=== PATIENT | female | born 1940 | race Caucasian/White ===

== ENCOUNTER 2023-02-25 10:48 | Outpatient (CLI) | payer MEDICARE, BC, SELFPAY | END 2023-02-25 10:49 | disposition home or self-care (01) | LOC: AMB 02-26 09:24 | PROVIDERS: PCP Family Medicine; Visit Provider Emergency Medicine Emergency Medical Services | DX: S19.9XXA Unspecified injury of neck, initial encounter (principal); S39.92XA Unspecified injury of lower back, initial encounter; W06.XXXA Fall from bed, initial encounter; Y92.003 Bedroom of unspecified non-institutional (private) residence as the place of occurrence of the external cause | CPT/HCPCS: A0425; A0429 ==

== ENCOUNTER 2023-02-25 11:32 | Observation (INO) | payer MEDICARE, BC, SELFPAY ==
[2023-02-25 11:42] VITALS: BP 123/78; PULSE 75; RESP 18; TEMP 36.1; O2SAT 95; BMI 46.9
[2023-02-25 12:39] VITALS: BP 131/78; O2SAT 96
--- NOTE | 2023-02-25 12:44 | ED.NURSE ---
Patient set up with meal tray.
[2023-02-25] MEDS: 0.9 % SODIUM CHLORIDE 1000 ml 1,000 ML IV (13:21)
--- NOTE | 2023-02-25 13:23 | ED_ITS ---
HPI - General Adult General Chief complaint: Fall/Minor Trauma Stated complaint: Fell Time Seen by Provider: 02/25/23 11:35 History of Present Illness HPI narrative: 82-year-old woman presenting to the emergency department via EMS after having fallen out of bed around 530 this morning about 5 or 6 hours ago. She is anxious about getting up due to knee replacements, kneeling on her plastic knees. She actually did have a fall on her knees about 6 days ago. Otherwise she just felt she was just too weak to get up; just could manage on her own. Is particularly worried about being too weak now on not being able to get to the bathroom for example. Is not complaining of significant pain. Initially noted to have right hip pain but she would not say that is where her major issue is. She does think she hit her head but feels lot better now with mild headache and can not say exactly where she come might have struck her head as she fell out of bed. Does have chronic neck issues but that does not appear to be flaring. Most discomfort she thinks was related to striking her toes as she rolled/fell out of bed and also ended up on the floor. Toes were excessively curled in some way. Feels like there is a glove on both feet. She does take regular acetaminophen and naproxen and is asking for this as we discuss care. She is also hungry noting her blood sugar to have been about 96. She is not experiencing nausea. She was in her usual state of health having really just been sleeping. No fevers. No history of seizures. Is noted to smell strongly of and be covered in urine on arrival here. Notes herself to have been diagnosed of COPD and asthma neither which he would say are flaring at this time. Related Data Home Medications Medication Instructions Recorded Confirmed acetaminophen 500 mg tablet 1,000 mg PO Q6H PRN 02/25/23 02/25/23 albuterol sulfate 90 mcg/actuation 2 inh inhalation Q4H PRN 02/25/23 02/25/23 aerosol inhaler aspirin 81 mg tablet,delayed 81 mg PO DAILY 02/25/23 02/25/23 release atorvastatin 10 mg tablet 10 mg PO DAILY 02/25/23 02/25/23 carvedilol 6.25 mg tablet 6.25 mg PO BID 02/25/23 02/25/23 cyclobenzaprine 5 mg tablet 5 mg PO TID PRN 02/25/23 02/25/23 fluticasone propionate 115 2 puff inhalation BID 02/25/23 02/25/23 mcg-salmeterol 21 mcg/actuation HFA inhaler (Advair HFA) fluticasone propionate 50 2 spray intranasal DAILY 02/25/23 02/25/23 mcg/actuation nasal spray,suspension furosemide 40 mg tablet 40 mg PO BID 02/25/23 02/25/23 insulin glargine 100 unit/mL (3 60 unit subcut BID 02/25/23 02/25/23 mL) subcutaneous pen (Lantus Solostar U-100 Insulin) insulin lispro 200 unit/mL (3 mL) 30 - 50 unit subcut TIDWM 02/25/23 02/25/23 subcutaneous pen (Humalog KwikPen U-200 Insulin) losartan 50 mg tablet 50 mg PO DAILY 02/25/23 02/25/23 multivitamin (Daily Multi-Vitamin 1 tab PO DAILY 02/25/23 02/25/23 tablet) naproxen sodium 220 mg tablet 220 mg PO BIDWM 02/25/23 02/25/23 (Aleve) omeprazole 20 mg capsule,delayed 20 mg PO DAILY 02/25/23 02/25/23 release tolterodine 4 mg capsule,extended 4 mg PO DAILY 02/25/23 02/25/23 release 24 hr Allergies Allergy/AdvReac Type Severity Reaction Status Date / Time lisinopril Allergy Verified 02/25/23 11:41 nitrofurantoin Allergy Verified 02/25/23 11:41 [From Macrodantin] Review of Systems Status of ROS: Reports: 6 or more systems reviewed and unremarkable except as noted in History and below [facility] Medical History (Updated 02/26/23 @ 11:41 by Cortney Vogt MD) Adenomatous colon polyp ?D12.6 - Benign neoplasm of colon, unspecified (ICD-10) Aneurysm of left iliac artery ?I72.3 - Aneurysm of iliac artery (ICD-10) Cervical spinal stenosis ?M48.02 - Spinal stenosis, cervical region (ICD-10) Chronic obstructive pulmonary disease ?J44.9 - Chronic obstructive pulmonary disease, unspecified (ICD-10) Diabetes mellitus type 2 in obese ?E11.69 - Type 2 diabetes mellitus with other specified complication (ICD-10) ?E66.9 - Obesity, unspecified (ICD-10) Diabetic peripheral neuropathy ?E11.42 - Type 2 diabetes mellitus with diabetic polyneuropathy (ICD-10) Essential hypertension ?I10 - Essential (primary) hypertension (ICD-10) External hemorrhoids ?K64.4 - Residual hemorrhoidal skin tags (ICD-10) Gastroesophageal reflux disease ?K21.9 - Gastro-esophageal reflux disease without esophagitis (ICD-10) Hyperlipidemia ?E78.5 - Hyperlipidemia, unspecified (ICD-10) Insulin resistance ?E88.81 - Metabolic syndrome (ICD-10) Long-term insulin use ?Z79.4 - rat exterminator (current) use of insulin (ICD-10) Lumbar spinal stenosis ?M48.061 - Spinal stenosis, lumbar region without neurogenic claudication (ICD-10) Lymphedema of both lower extremities ?I89.0 - Lymphedema, not elsewhere classified (ICD-10) Major depression ?F32.9 - Major depressive disorder, single episode, unspecified (ICD-10) Mild cognitive impairment ?G31.84 - Mild cognitive impairment of uncertain or unknown etiology (ICD-10) Mild persistent asthma without complication ?J45.30 - Mild persistent asthma, uncomplicated (ICD-10) Morbid obesity ?E66.01 - Morbid (severe) obesity due to excess calories (ICD-10) Obstructive sleep apnea ?G47.33 - Obstructive sleep apnea (adult) (pediatric) (ICD-10) STEPHANIE on CPAP ?G47.33 - Obstructive sleep apnea (adult) (pediatric) (ICD-10) ?Z99.89 - Dependence on other enabling machines and devices (ICD-10) Urinary urgency ?R39.15 - Urgency of urination (ICD-10) Vitamin B12 deficiency ?E53.8 - Deficiency of other specified B group vitamins (ICD-10) Surgical History History of colonoscopy with polypectomy ?Z98.890 - Other specified postprocedural states (ICD-10) ?Z86.010 - Personal history of colonic polyps (ICD-10) History of laminectomy ?Z98.890 - Other specified postprocedural states (ICD-10) History of strabismus surgery ?Z98.890 - Other specified postprocedural states (ICD-10) History of tubal ligation ?Z98.51 - Tubal ligation status (ICD-10) Status post appendectomy ?Z90.49 - Acquired absence of other specified parts of digestive tract (ICD- 10) Status post bilateral knee replacements ?Z96.653 - Presence of artificial knee joint, bilateral (ICD-10) Status post cataract extraction ?Z98.49 - Cataract extraction status, unspecified eye (ICD-10) Status post dilatation and curettage ?Z98.890 - Other specified postprocedural states (ICD-10) Status post hysterectomy ?Z90.710 - Acquired absence of both cervix and uterus (ICD-10) Status post mastectomy ?Z90.10 - Acquired absence of unspecified breast and nipple (ICD-10) Family History Mother Alzheimers disease Social History Narrative: Lives alone in private home. As of 02/25/2023 patient indicates she has been trying to convince her children that she needs to live in a setting where she can receive help due to her evolving physical and cognitive decline. Would like to move to the [facility], closer to 2 sons and her sister. Designates her son, Elier, as her healthcare power of deputy commonwealth's attorney should that be required. Requests DNR DNI resuscitation in the event of cardiopulmonary demise. Dr. Elmira Rodriguez is her primary care physician. Highest level of school completed/degree received: some college, no degree Smoking Status: Never smoker How often do you have a drink containing alcohol: never AUDIT-C Alcohol total score: 0 Non-prescribed substance use: denies use Caffeine: Yes (Daily) service: No Exam Narrative: Exam Narrative: Pleasant. NAD. Hard of hearing. Smells strongly of urine. Dysconjugate gaze. Leave the left eye deviates superiorly and laterally. There is some conjunctival injection possible mild subconjunctival hemorrhage on the left. Extraocular movements appear to be full and without pain. Is breathing easily. Is rather weak to go to sitting. Lungs with some clearing crepitus. Initially trace wheeze I heard in the anterior chest otherwise seems to be resolved. Breathing easily. Oropharynx without indication of trauma. Is sticky. She does not have any discrete areas of pain or swelling to palpation of the head. Neck is without midline tenderness. Back without midline tenderness. Again expansive breathing without pain. No pain to palpation about the clavicles. Appears to be moving all extremities without particular pain or difficulty. Able to raise both legs from the bed without assistance and flexing extending the thighs, rotating without exacerbation of pain. She is a little sore to palpation in the posterior right hip but only minimally so. There is midline scars on both knees consistent with surgery/knee replacement. Stippling about the right knee consistent with a recently having been on her knees. Skin is otherwise warm and dry. She has some mild intertrigo under the abdominal fold/pannus. There is mild erythema and calor symmetrically at the sock line; not tender to palpation here. Toes are without inflammatory changes and no particular pain to palpation. I suspect they were in an odd position for some time. Abdomen is obese soft and nontender. There is soft uninflamed umbilical hernia. Const: Vital Signs, click to edit/add: Vital Signs - 24 hr 02/25/23 12:39 Blood Pressure [Ri ght Upper Arm] 131/78 Pulse Oximetry 96 Documenting provider has reviewed patient's vital signs: yes Course Vital Signs Vital signs: Initial Vital Signs Temperature 97.0 F L 02/25/23 11:42 Temperature Source Temporal Artery Scan 02/25/23 11:42 Pulse Rate 75 02/25/23 11:42 Respiratory Rate 18 02/25/23 11:42 Blood Pressure 123/78 02/25/23 11:42 Blood Pressure Mean 93 02/25/23 11:42 Blood Pressure Position Sitting 02/25/23 11:42 Pulse Oximetry 95 02/25/23 11:42 Oxygen Delivery Method Room Air 02/25/23 11:42 Vital Signs Temperature 97.0 F L 02/25/23 11:42 Pulse Rate 75 02/25/23 11:42 Respiratory Rate 18 02/25/23 11:42 Blood Pressure 123/78 02/25/23 11:42 Pulse Oximetry 95 02/25/23 11:42 Oxygen Delivery Method Room Air 02/25/23 11:42 Temperature 98.1 F 02/26/23 11:00 Pulse Rate 59 L 02/26/23 11:00 Respiratory Rate 20 02/26/23 11:00 Blood Pressure 113/82 02/26/23 11:00 Pulse Oximetry 94 02/26/23 11:00 Oxygen Delivery Method Room Air 02/26/23 11:00 Oxygen Flow Rate 2 02/26/23 03:00 Medical Decision Making MDM Narrative Medical decision making narrative: Two nurses assisted to commode. They note marked weakness. I think it would be reasonable to look for potential infection source. She does not appear to be in respiratory difficulty. Is generally deconditioned and overweight. Concern also of somewhat prolonged down time. Will hydrate. Check CK. It does not appear that imaging is needed at this time. This not appear to be a significant head injury nor she on blood thinners. No discrete area of injury on her feet either. And is mobile with her hips inconsistent with fracture. Due to apparent weakness and living alone I am anticipating though admission unless she really turns around. On reassessment still appears too weak to go home. I have contacted our hospitalist for admission. Lab Data Lab results reviewed: Yes I reviewed the patient's lab results Labs: Lab Results 02/25/23 02/25/23 Range/Units 12:49 13:40 WBC 7.53 (4.50-11.00) K/uL RBC 4.32 (4.00-5.20) m/uL Hgb 12.2 (12.0-16.0) gm/dL Hct 38.8 (33.0-51.0) % MCV 90 (80-100) fL MCH 28 (26-34) pg MCHC 31 L (32-36) gm/dL RDW Coeff of Blanche 14.6 (11.5-15.5) % Plt Count 126 L (140-440) K/uL Neut % (Auto) 75.7 H (42.0-72.0) % Lymph % (Auto) 14.7 L (20-44) % [place] % (Auto) 8.2 (0.0-11.0) % Eos % (Auto) 1.2 (0.0-7.0) % Baso % (Auto) 0.1 (0.0-3.0) % Neut # (Auto) 5.70 (1.7-7.0) K/uL Lymph # (Auto) 1.10 (0.90-2.90) K/uL [place] # (Auto) 0.60 (0.00-0.90) K/UL Eos # (Auto) 0.09 (0.00-0.50) K/uL Baso # (Auto) 0.01 (0.00-0.30) K/uL Sodium 141 (135-149) mmol/L Potassium 3.6 (3.6-5.1) mmol/L Chloride 105 (96-114) mmol/L Carbon Dioxide 24 (20-32) mmol/L BUN 14 (7-30) mg/dL Creatinine 0.4 L (0.5-1.5) mg/dL Estimated Creat Clear 40.38 Estimated GFR 100 ml/min Glucose 108 (60-115) mg/dL Lactate 2.0 H (0.5-1.9) mmol/L Calcium 8.5 (8.4-10.6) mg/dL Total Creatine Kinase 268 H (41-117) U/L C-Reactive Protein 2.3 H (0.5-1.0) mg/dL Ethyl Alcohol < 0.01 L (0.01-0.03) % SARS-CoV-2 (PCR) Negative SARS-CoV-2 (Negative) Discharge Plan Discharge Clinical Impression: Physical deconditioning, Weakness Patient Disposition: Admitted As Inpatient Condition: Stable
[2023-02-25 13:47] LABS: Chloride* 105 mmol/L (96-114); Glucose* 108 mg/dL (60-115); Potassium* 3.6 mmol/L (3.6-5.1); Sodium* 141 mmol/L (135-149)
[2023-02-25 13:49] LABS: Basophils Absolute Auto 0.01 K/uL (0.00-0.30); Basophils Percent Auto 0.1 % (0.0-3.0); Eosinophils Absolute Auto 0.09 K/uL (0.00-0.50); Eosinophils Percent Auto 1.2 % (0.0-7.0); Hematocrit 38.8 % (33.0-51.0); Hemoglobin* 12.2 gm/dL (12.0-16.0); Immature Granulocytes Abs Auto 0.01 K/uL (0.00-0.30); Immature Granulocytes Pct Auto 0.1 %; Lymphocytes Percent Auto 14.7 % (20-44); Mean Corpuscular HGB Conc 31 gm/dL (32-36); Mean Corpuscular Hemoglobin 28 pg (26-34); Mean Corpuscular Volume 90 fL (80-100); Monocytes Percent Auto 8.2 % (0.0-11.0); Neutrophils Percent Auto 75.7 % (42.0-72.0); Platelet Count* 126 K/uL (140-440); RDW Coefficient of Variation % 14.6 % (11.5-15.5); Red Blood Count 4.32 m/uL (4.00-5.20); White Blood Count* 7.53 K/uL (4.50-11.00)
[2023-02-25 13:51] LABS: Slide Review Reflex No
[2023-02-25 14:00] LABS: SARS PCR* Negative SARS-CoV-2 (Negative)
[2023-02-25] MEDS: ACETAMINOPHEN 500 MG TABLET 1000 MG PO (14:16)
[2023-02-25 14:44] LABS: Creatinine* 0.4 mg/dL (0.5-1.5); Est. Creatinine Clearance* 40.38; Estimated Glomerular Filt Rate 100 ml/min
[2023-02-25 14:45] LABS: Blood Urea Nitrogen* 14 mg/dL (7-30); Carbon Dioxide* 24 mmol/L (20-32)
[2023-02-25 14:46] LABS: Calcium* 8.5 mg/dL (8.4-10.6)
[2023-02-25 14:48] LABS: C Reactive Protein* 2.3 mg/dL (0.5-1.0); Ethanol* < 0.01 % (0.01-0.03)
[2023-02-25 15:00] LABS: Creatine Kinase* 268 U/L (41-117)
[2023-02-25 16:41] LABS: HCO3 VBG 26 mmol/L (21-28); Lactate* 2.3 mmol/L (0.5-1.9); PCO2 VBG 39 mmHG (40-50); PO2 VBG 58.1 mmHG (25-47); pH VBG 7.439 (7.32-7.43)
[2023-02-25] MEDS: FUROSEMIDE 40 MG TABLET PO (16:47)
[2023-02-25] MEDS: 0.9 % SODIUM CHLORIDE 1000 ml 1,000 ML 125 ML IV (16:47)
--- NOTE | 2023-02-25 16:58 | P.IMHP_ITS ---
Hospitalist- H&P: HPI History of Present Illness Time Seen by Provider: 15:30 Date Seen: 02/25/23 Chief complaint: Fell Narrative: Jesenia Rudolph is a 82 year old woman who lives alone in her own private residence. Around 0530 today patient rolled out of bed and was unable to get up afterward. She indicates she must have been disoriented as to where she was and she simply rolled out of bed. She had minor complaint of right foot discomfort right ankle discomfort right hip discomfort right elbow discomfort right shoulder discomfort and even had discomfort post fall. Believes she did strike her head. She know she did not lose consciousness. She states she was stuck between a dresser and her bed. It took her 2-3 hours to scoot in order to reach the telephone and called EMS for help. With help from EMS she was able to become dislodged from this area. She notes she is weak which is not unusual for her but she is now too frightened to continue to live in her home. She indicates she has had difficulty with ambulating and transferring for some time. Early January she was unable to get off of her toilet because of this difficulty. She has been discussing with her children her desire to move out of her home and into a setting where she has helped, recognizing that it is becoming increasingly difficult for her to safely care for herself due to her evolving physical weakness and cognitive decline. Review of Systems Status of ROS: Reports: 10 or more systems reviewed and unremarkable except as noted in History and below Narrative: Denies loss of consciousness. Most of her right-sided discomforts have since resolved. Denies angina, anginal equivalent, syncope, near syncope, orthostasis, vertical, dizziness, lightheadedness, nausea, vomiting, palpitations, chest fluttering, diaphoresis, fevers, rigors, cough, dyspnea at rest, paroxysmal nocturnal dyspnea, orthopnea. Has baseline dyspnea with exertion, not new. Utilizing her CPAP at night. Tells me that she has oxygen bleeding into her CPAP machine at 2 liters/minute. Baseline difficulties with passing her stool. At time she notes postvoid bleeding from her known external hemorrhoids. Had a colonoscopy in January of 2022 which was essentially negative except for external hemorrhoid and the polyp that was removed that did not have high-grade dysplasia. Denies constipation or diarrhea. Denies dysuria, hematuria, frequency. Does have urinary urgency. Does have stress urinary incontinence. Utilizes incontinent products. Acknowledges is becoming increasingly difficult for her to walk. She describes it as a sense of weakness. Known to have severe lumbar spinal stenosis. No other focal motor neurologic deficits. No weight gain, weight loss, night sweats, or cold or heat intolerance. [facility] Medical History (Updated 02/25/23 @ 17:16 by Matt Houesr MD) Adenomatous colon polyp ?D12.6 - Benign neoplasm of colon, unspecified (ICD-10) Aneurysm of left iliac artery ?I72.3 - Aneurysm of iliac artery (ICD-10) Cervical spinal stenosis ?M48.02 - Spinal stenosis, cervical region (ICD-10) Chronic obstructive pulmonary disease ?J44.9 - Chronic obstructive pulmonary disease, unspecified (ICD-10) Diabetes mellitus type 2 in obese ?E11.69 - Type 2 diabetes mellitus with other specified complication (ICD-10) ?E66.9 - Obesity, unspecified (ICD-10) Diabetic peripheral neuropathy ?E11.42 - Type 2 diabetes mellitus with diabetic polyneuropathy (ICD-10) Essential hypertension ?I10 - Essential (primary) hypertension (ICD-10) External hemorrhoids ?K64.4 - Residual hemorrhoidal skin tags (ICD-10) Gastroesophageal reflux disease ?K21.9 - Gastro-esophageal reflux disease without esophagitis (ICD-10) Hyperlipidemia ?E78.5 - Hyperlipidemia, unspecified (ICD-10) Insulin resistance ?E88.81 - Metabolic syndrome (ICD-10) Long-term insulin use ?Z79.4 - detention (current) use of insulin (ICD-10) Lumbar spinal stenosis ?M48.061 - Spinal stenosis, lumbar region without neurogenic claudication (ICD-10) Lymphedema of both lower extremities ?I89.0 - Lymphedema, not elsewhere classified (ICD-10) Major depression ?F32.9 - Major depressive disorder, single episode, unspecified (ICD-10) Mild cognitive impairment ?G31.84 - Mild cognitive impairment of uncertain or unknown etiology (ICD-10) Mild persistent asthma without complication ?J45.30 - Mild persistent asthma, uncomplicated (ICD-10) Morbid obesity ?E66.01 - Morbid (severe) obesity due to excess calories (ICD-10) Obstructive sleep apnea ?G47.33 - Obstructive sleep apnea (adult) (pediatric) (ICD-10) STEPHANIE on CPAP ?G47.33 - Obstructive sleep apnea (adult) (pediatric) (ICD-10) ?Z99.89 - Dependence on other enabling machines and devices (ICD-10) Urinary urgency ?R39.15 - Urgency of urination (ICD-10) Vitamin B12 deficiency ?E53.8 - Deficiency of other specified B group vitamins (ICD-10) Surgical History History of colonoscopy with polypectomy ?Z98.890 - Other specified postprocedural states (ICD-10) ?Z86.010 - Personal history of colonic polyps (ICD-10) History of laminectomy ?Z98.890 - Other specified postprocedural states (ICD-10) History of strabismus surgery ?Z98.890 - Other specified postprocedural states (ICD-10) History of tubal ligation ?Z98.51 - Tubal ligation status (ICD-10) Status post appendectomy ?Z90.49 - Acquired absence of other specified parts of digestive tract (ICD- 10) Status post bilateral knee replacements ?Z96.653 - Presence of artificial knee joint, bilateral (ICD-10) Status post cataract extraction ?Z98.49 - Cataract extraction status, unspecified eye (ICD-10) Status post dilatation and curettage ?Z98.890 - Other specified postprocedural states (ICD-10) Status post hysterectomy ?Z90.710 - Acquired absence of both cervix and uterus (ICD-10) Status post mastectomy ?Z90.10 - Acquired absence of unspecified breast and nipple (ICD-10) Family History Mother Alzheimers disease Social History Narrative: Lives alone in private home. As of 02/25/2023 patient indicates she has been trying to convince her children that she needs to live in a setting where she can receive help due to her evolving physical and cognitive decline. Would like to move to the [facility], closer to 2 sons and her sister. Designates her son, Elier, as her healthcare power of family law attorney should that be required. Requests DNR DNI resuscitation in the event of cardiopulmonary demise. Dr. Elmira Rodriguez is her primary care physician. Meds Home Medications and Allergies Home Medications Medication Instructions Recorded Confirmed Type acetaminophen 500 mg tablet 1,000 mg PO Q6H PRN 02/25/23 02/25/23 History albuterol sulfate 90 mcg/actuation 2 inh inhalation Q4H PRN 02/25/23 02/25/23 History aerosol inhaler aspirin 81 mg tablet,delayed 81 mg PO DAILY 02/25/23 02/25/23 History release atorvastatin 10 mg tablet 10 mg PO DAILY 02/25/23 02/25/23 History carvedilol 6.25 mg tablet 6.25 mg PO BID 02/25/23 02/25/23 History cyclobenzaprine 5 mg tablet 5 mg PO TID PRN 02/25/23 02/25/23 History fluticasone propionate 115 2 puff inhalation BID 02/25/23 02/25/23 History mcg-salmeterol 21 mcg/actuation HFA inhaler (Advair HFA) fluticasone propionate 50 2 spray intranasal DAILY 02/25/23 02/25/23 History mcg/actuation nasal spray,suspension furosemide 40 mg tablet 40 mg PO BID 02/25/23 02/25/23 History insulin glargine 100 unit/mL (3 60 unit subcut BID 02/25/23 02/25/23 History mL) subcutaneous pen (Lantus Solostar U-100 Insulin) insulin lispro 200 unit/mL (3 mL) 30 - 50 unit subcut TIDWM 02/25/23 02/25/23 History subcutaneous pen (Humalog KwikPen U-200 Insulin) losartan 50 mg tablet 50 mg PO DAILY 02/25/23 02/25/23 History multivitamin (Daily Multi-Vitamin 1 tab PO DAILY 02/25/23 02/25/23 History tablet) naproxen sodium 220 mg tablet 220 mg PO BIDWM 02/25/23 02/25/23 History (Aleve) omeprazole 20 mg capsule,delayed 20 mg PO DAILY 02/25/23 02/25/23 History release tolterodine 4 mg capsule,extended 4 mg PO DAILY 02/25/23 02/25/23 History release 24 hr Allergies Allergy/AdvReac Type Severity Reaction Status Date / Time lisinopril Allergy Verified 02/25/23 11:41 nitrofurantoin Allergy Verified 02/25/23 11:41 [From Macrodantin] Exam Narrative: Exam Narrative: Is in no acute distress. Appears comfortable. Small strong of urine. Alert, oriented to self, place, in part to time, and situation. Friendly, articulate, cooperative. Does have word-finding difficulties. Often gets lost in the middle of conversation not remembering what she was talking about. Vision and hearing are for the most part normal. Left sclera is injected, right is normal. Does have strabismus. Dentition in fair repair. Dry buccal mucosa. Neck is supple. Midline trachea. Normal thyroid. No JVD or hepatojugular reflux. No adenopathy in the pre or postauricular chains, anterior or posterior cervical chains, submandibular or submental fossa, supra or infraclavicular fossa, or axilla bilaterally. Lungs are clear to auscultation, without wheezing, rhonchi, or rales. Chest wall excursions are full. No CVA tenderness. Heart tones with regular rhythm, normal S1-S2, without murmur, gallop, or rub. PMI is not laterally displaced. Abdomen is morbidly obese. Active bowel sounds, soft, nontender. Mild edema pretibially bilaterally and pre-pedally. Transfers from supine to sitting and sitting to standing with standby assist. No tremor, asterixis, or ataxia. Const: Vital Signs, click to edit/add: Vital Signs - 24 hr 02/25/23 11:42 02/25/23 12:39 Temperature 97.0 F L Pulse Rate [Right Pulse Oximeter] 75 Respiratory Rate 18 Blood Pressure [Ri ght Upper Arm] 123/78 131/78 Pulse Oximetry 95 96 Oxygen Delivery Me thod Room Air Documenting provider has reviewed patient's vital signs: yes Hospitalist - H&P: Result Labs Labs: Short CBC 02/25/23 Range/Units 13:40 WBC 7.53 (4.50-11.00) K/uL Hgb 12.2 (12.0-16.0) gm/dL Hct 38.8 (33.0-51.0) % Plt Count 126 L (140-440) K/uL BMP 02/25/23 13:40 Sodium 141 Potassium 3.6 Chloride 105 Carbon Dioxide 24 BUN 14 Creatinine 0.4 L Glucose 108 Calcium 8.5 Cardiac Enzymes 02/25/23 Range/Units 13:40 Total Creatine Kinase 268 H (41-117) U/L Assessment and Plan Assessment and plan (1) Fall: Status: Acute (2) Weakness: Status: Acute (3) Physical deconditioning: Status: Acute (4) Lumbar spinal stenosis: Problem comment: MRI 10/08/2019: 1. Moderately advanced spinal canal stenosis L2-L3, L3-L4, L4-L5; 2. L2 wedge deformity, L3 endplate deformity on the left, combination of type 1 and type 2 Modic changes within the L2 L3 subchondral bone marrow, chronic appearing superior inferior endplate deformities at L4 and at L5. Status: Acute (5) Cervical spinal stenosis: Status: Acute (6) Morbid obesity: Problem comment: BMI 45 Status: Acute (7) Mild cognitive impairment: Problem comment: MOCA 30/30 on 05/24/2022, increasingly difficult for her to care for herself and live alone safely Status: Acute (8) Diabetes mellitus type 2 in obese: Problem comment: Hemoglobin A1c 7.9 09/11/2022, 8.0 09/12/2021, 7.6 09/01/2020 Status: Acute (9) STEPHANIE on CPAP: Status: Acute Plan 1. Reviewed impression with Dr. Jackson, emergency department physician. Agree with recommendation for admission to observation given patient weakness and inability to safely care for self. 2. Reviewed impression with patient. 3. Patient agreeable to admission for observation. 4. Physical and occupational therapy consultation, including repeat MOCA administration. Coding Specialist consultation for initiation of placement considerations. 5. Continue supportive medications. 6. Continue with CPAP at at bedtime. 7. Answered patient's questions to her satisfaction. 8. Patient agreeable with above stated plans and recommendations. 9. Hydrate and monitor creatine kinase, await urine analysis, obtain other labs. 10. Consider additional imaging if warranted.
[2023-02-25 17:01] VITALS: BP 131/88; PULSE 77; RESP 24; TEMP 36.8; O2SAT 96; BMI 46.6
--- NOTE | 2023-02-25 17:59 | PC.NURSE ---
PT PLEASANT AND COOPERATIVE, ALERT AND ORIENTED X3, ALTHOUGH APPEARS CONFUSED AT TIMES OR MISTAKES FACTS, MY IN 2019, 5 YEARS AGO, ALTHOUGH PREVIOUSLY STATED IT WAS 2022, UP WITH A1 WALKER AND BELT TOLERATING FAIRLY SOB WITH ACTIVITY, TAKES A COUPLE MINUTES TO RECOVER ONCE AT REST, NEED UA PT VOIDED BUT MISSED THE COLLECTION CONTAINER IN THE TOILET AND IN INCONTINENT PRIOR TO GETTING TO TOILET, GENERALIZED PAIN LOWER BACK, RIGHT HIP, RIGHT KNEE, TOES BEING MANAGED WITH SCHEDULED MEDICATIONS, PATIENT REQUESTED SCHEDULED NAPROXEN BE GIVEN CLOSER TO BED TIME, TOLERATING REGULAR DIET PATIENT STATED AT HOME SHE WOULD GIVEN HERSELF 100 UNITS OF INSULIN BEFORE MEAL PATIENT EDUCATED ON SHORT AND LONG ACTING INSULIN PATIENT VERBALIZE UNDERSTANDING, BRUISE NOTED TO RIGHT KNEE PER PATIENT THIS IS NOT FROM TODAY FALL BUT FROM A FALL A COUPLE DAYS AGO, LEFT EYE DEVIATED PER PATIENT THIS IS NORMAL HAD EYE SURGERY AN INFANT, LEFT BREAST REMOVED PREVIOUS MASTECTOMY.
[2023-02-25 19:00] VITALS: BP 105/69; PULSE 70; RESP 20; TEMP 36.6; O2SAT 94
[2023-02-25 19:18] LABS: Appearance Urine Clear (Clear); Bilirubin Urine Negative (Negative); Blood Urine Trace-intact (Negative); Color Urine Yellow (Yellow); Glucose Urine 2+ (Negative); Ketones Urine Trace (Negative); Leukocyte Esterase Urine Negative (Negative); Nitrite Urine Negative (Negative); Protein Urine Negative (Negative)
[2023-02-25 19:43] LABS: Squamous Epithelial Cell Urine Few (None-Few); WBC Urine 0-2 (0-5)
[2023-02-25] MEDS: NAPROXEN 250 MG TABLET PO (20:50)
[2023-02-25] MEDS: ATORVASTATIN 10 MG TABLET PO (20:50)
[2023-02-25] MEDS: carvediloL 6.25 MG TABLET PO (20:50)
[2023-02-25 23:00] VITALS: BP 120/63; PULSE 64; RESP 18; RESP 20; TEMP 36.1; O2SAT 95
[2023-02-26] VITALS (8 sets, daily range): BP systolic 109–141; BP diastolic 62–98; PULSE 57–69; RESP 18–20; TEMP 36.1–36.7; O2SAT 93–96
[2023-02-26 06:15] LABS: Lactate* 2.2 mmol/L (0.5-1.9)
--- NOTE | 2023-02-26 06:25 | PC.NURSE ---
Shift note: Pt is doing well, able to ambulate with A1, walker and GB. Pain level has been rated between 4 and 7 but denied pain medication. Pt was occasionally confused and forgetfulness at times.
[2023-02-26 06:34] LABS: Creatine Kinase* 286 U/L (41-117)
[2023-02-26] MEDS: OMEPRAZOLE 20 MG CAPSULE DR PO (06:57)
[2023-02-26] MEDS: 0.9 % SODIUM CHLORIDE 1000 ml 1,000 ML 250 ML IV (07:55)
[2023-02-26 07:59] LABS: Chloride* 106 mmol/L (96-114); Potassium* 4.1 mmol/L (3.6-5.1); Sodium* 137 mmol/L (135-149)
[2023-02-26 08:02] LABS: Creatinine* 0.4 mg/dL (0.5-1.5); Est. Creatinine Clearance* 40.38; Estimated Glomerular Filt Rate 100 ml/min
[2023-02-26 08:03] LABS: Blood Urea Nitrogen* 15 mg/dL (7-30); Calcium* 8.4 mg/dL (8.4-10.6); Carbon Dioxide* 23 mmol/L (20-32); Glucose* 192 mg/dL (60-115)
[2023-02-26 08:06] LABS: C Reactive Protein* 2.2 mg/dL (0.5-1.0)
[2023-02-26 08:14] LABS: Hemoglobin A1C* 9.91 % (0-5.6)
[2023-02-26] MEDS: NAPROXEN 250 MG TABLET PO ×2 (08:37→20:27)
[2023-02-26] MEDS: ASPIRIN 81 MG TABLET EC PO (08:41)
[2023-02-26] MEDS: LOSARTAN POTASSIUM 50 MG TABLET PO (08:41)
[2023-02-26] MEDS: FLUTICASONE PROPIONATE NASAL 2 SPRAY NOSTRIL-B (08:41)
[2023-02-26] MEDS: FUROSEMIDE 40 MG TABLET PO ×2 (08:41→14:01)
[2023-02-26] MEDS: carvediloL 6.25 MG TABLET PO ×2 (08:41→20:26)
[2023-02-26] MEDS: TOLTERODINE TARTRATE 2 MG CAP.ER.24H 4 MG PO (08:41)
[2023-02-26] MEDS: ALBUTEROL INHALER 2 PUFF IH (08:42)
[2023-02-26] MEDS: SODIUM CHLORIDE 0.9 % (FLUSH) 10 ML SYRINGE 5 ML IVF (08:43)
[2023-02-26] MEDS: ACETAMINOPHEN 500 MG TABLET 1000 MG PO (09:43)
--- NOTE | 2023-02-26 09:51 | PM.IMPN1 ---
Progress Note: A&P Assessment and plan (1) Fall: Problem details: uninjured 02/25. Physical therapy reports some impulsive movements and dismissive of instructions. Occupational therapy documented a executive function is regards chronic disease management, activities of independent living are questionably reliable. -spoke with son Nash for 25 minutes on the phone. I am recommending assisted living facility. I also recommended a family where we explained our findings and concerns to Jesenia. At a minimum, she will meet criteria for discharge in the morning, assuming lactate and CK are normal. Home safety eval, OT outpatient at a minimum. Status: Acute (2) Lactate blood increase: Problem details: Fluid bolus with maintenance rate, recheck 3:00 p.m. Status: Acute (3) Elevated CK: Problem details: Fluid bolus with maintenance rate, recheck 3:00 p.m. Status: Acute (4) Diabetes mellitus type 2 in obese: Problem details: A1C 9.9 SSI, accuchecks, home insulin (lantus and regular, no PO meds) Status: Acute (5) Mild cognitive impairment: Problem details: [place] . More concerning is her executive function is regards I ADLs Status: Acute (6) Morbid obesity: Problem details: BMI 45 Status: Acute (7) Physical deconditioning: Status: Acute (8) STEPHANIE on CPAP: Status: Acute (9) Lumbar spinal stenosis: Problem details: MRI 10/08/2019: 1. Moderately advanced spinal canal stenosis L2-L3, L3-L4, L4-L5; 2. L2 wedge deformity, L3 endplate deformity on the left, combination of type 1 and type 2 Modic changes within the L2 L3 subchondral bone marrow, chronic appearing superior inferior endplate deformities at L4 and at L5. Status: Acute (10) Cervical spinal stenosis: Status: Acute Subjective Date Seen: 02/26/23 Interval history: Daily Progress Note - Hospital Medicine Day #: 2 CC: Weak, fell at home. Elevated CK and lactate levels. OVERNIGHT UPDATES FROM STAFF & MED, LAB, IMAGING UPDATES Uneventful night. Patient is stable. She is alert and hungry for breakfast. She is able to describe her family and who has been involved in her care. Afebrile. 125/80. Pulse 58. Respiratory rate 20. 95% on room air. 127.5 kilos. Labs are reviewed from admission, 02/25/2023 Morning labs reveal normal electrolytes, normal creatinine. Hemoglobin A1c 9.9 Persistently elevated lactate at 2.2 Total CK has climbed from 268-286 CRP is about the same 2.3-2.2 Objective: comfortable; chats easily Vitals: see above Lungs: Clear. Cardiac: S1S2. Disposition/Potential discharge - Likely to return to previous living situation. Total time is 35 minutes with greater than 50% spent in counseling and coordination of care. Exam Const: Vital Signs, click to edit/add: Vital Signs - 24 hr 02/25/23 11:42 02/25/23 12:39 02/25/23 17:01 Temperature 97.0 F L 98.2 F Pulse Rate [Pulse Oximeter] 77 Pulse Rate [Right Pulse Oximeter] 75 Pulse Rate [orthos tatic lying Left] Pulse Rate [orthos tatic sitting Left ] Pulse Rate [orthos tatic standing Lef t] Respiratory Rate 18 24 Blood Pressure [Le ft Arm] 131/88 Blood Pressure [Ri ght Upper Arm] 123/78 131/78 Blood Pressure [or thostatic lying] Blood Pressure [or thostatic sitting Left Arm] Blood Pressure [or thostatic standing Left Arm] Pulse Oximetry 95 96 96 Oxygen Delivery Me thod Room Air Room Air Oxygen Flow Rate 02/25/23 17:01 02/25/23 19:00 02/25/23 23:00 Temperature 98 F Pulse Rate [Pulse Oximeter] 70 Pulse Rate [Right Pulse Oximeter] Pulse Rate [orthos tatic lying Left] Pulse Rate [orthos tatic sitting Left ] Pulse Rate [orthos tatic standing Lef t] Respiratory Rate 24 20 18 Blood Pressure [Le ft Arm] 105/69 Blood Pressure [Ri ght Upper Arm] Blood Pressure [or thostatic lying] Blood Pressure [or thostatic sitting Left Arm] Blood Pressure [or thostatic standing Left Arm] Pulse Oximetry 96 94 Oxygen Delivery Me thod Room Air Room Air Oxygen Flow Rate 02/25/23 23:00 02/25/23 23:00 02/26/23 03:00 Temperature 96.9 F L 96.9 F L Pulse Rate [Pulse Oximeter] 64 63 Pulse Rate [Right Pulse Oximeter] Pulse Rate [orthos tatic lying Left] Pulse Rate [orthos tatic sitting Left ] Pulse Rate [orthos tatic standing Lef t] Respiratory Rate 20 18 18 Blood Pressure [Le ft Arm] 120/63 121/64 Blood Pressure [Ri ght Upper Arm] Blood Pressure [or thostatic lying] Blood Pressure [or thostatic sitting Left Arm] Blood Pressure [or thostatic standing Left Arm] Pulse Oximetry 95 95 95 Oxygen Delivery Me thod Nasal Cannula Nasal Cannula Nasal Cannula Oxygen Flow Rate 2 2 2 02/26/23 06:00 02/26/23 07:20 02/26/23 07:00 Temperature 97.1 F L Pulse Rate [Pulse Oximeter] 58 L Pulse Rate [Right Pulse Oximeter] Pulse Rate [orthos tatic lying Left] 62 Pulse Rate [orthos tatic sitting Left ] 57 L Pulse Rate [orthos tatic standing Lef t] 59 L Respiratory Rate 20 20 Blood Pressure [Le ft Arm] 125/80 Blood Pressure [Ri ght Upper Arm] Blood Pressure [or thostatic lying] 120/68 Blood Pressure [or thostatic sitting Left Arm] 134/98 H Blood Pressure [or thostatic standing Left Arm] 141/95 H Pulse Oximetry 95 Oxygen Delivery Pr thod Room Air Oxygen Flow Rate 02/26/23 07:00 Temperature Pulse Rate [Pulse Oximeter] Pulse Rate [Right Pulse Oximeter] Pulse Rate [orthos tatic lying Left] Pulse Rate [orthos tatic sitting Left ] Pulse Rate [orthos tatic standing Lef t] Respiratory Rate 20 Blood Pressure [Le ft Arm] Blood Pressure [Ri ght Upper Arm] Blood Pressure [or thostatic lying] Blood Pressure [or thostatic sitting Left Arm] Blood Pressure [or thostatic standing Left Arm] Pulse Oximetry 95 Oxygen Delivery Pr thod Room Air Oxygen Flow Rate Labs Labs: Laboratory Results - last 24 hr 02/25/23 02/25/23 02/25/23 12:49 13:40 16:38 WBC 7.53 RBC 4.32 Hgb 12.2 Hct 38.8 MCV 90 MCH 28 MCHC 31 L RDW Coeff of Blanche 14.6 Plt Count 126 L Neut % (Auto) 75.7 H Lymph % (Auto) 14.7 L [place] % (Auto) 8.2 Eos % (Auto) 1.2 Baso % (Auto) 0.1 Neut # (Auto) 5.70 Lymph # (Auto) 1.10 [place] # (Auto) 0.60 Eos # (Auto) 0.09 Baso # (Auto) 0.01 VBG pH 7.439 H VBG pCO2 39 L VBG pO2 58.1 H VBG HCO3 26 Sodium 141 Potassium 3.6 Chloride 105 Carbon Dioxide 24 BUN 14 Creatinine 0.4 L Estimated Creat Clear 40.38 Estimated GFR 100 Glucose 108 Hemoglobin A1c Lactate 2.0 H 2.3 H Calcium 8.5 Total Creatine Kinase 268 H C-Reactive Protein 2.3 H Urine Color Urine Appearance Urine pH Ur Specific Chancellor Urine Protein Urine Glucose (UA) Urine Ketones Urine Blood Urine Nitrite Urine Bilirubin Urine Urobilinogen Ur Leukocyte Esterase Urine RBC Urine WBC Ur Squamous Epith Cells Urine Bacteria Ethyl Alcohol < 0.01 L SARS-CoV-2 (PCR) Negative SARS-CoV-2 02/25/23 02/26/23 18:59 05:50 WBC RBC Hgb Hct MCV MCH MCHC RDW Coeff of Blanche Plt Count Neut % (Auto) Lymph % (Auto) [place] % (Auto) Eos % (Auto) Baso % (Auto) Neut # (Auto) Lymph # (Auto) [place] # (Auto) Eos # (Auto) Baso # (Auto) VBG pH VBG pCO2 VBG pO2 VBG HCO3 Sodium 137 Potassium 4.1 Chloride 106 Carbon Dioxide 23 BUN 15 Creatinine 0.4 L Estimated Creat Clear 40.38 Estimated GFR 100 Glucose 192 H Hemoglobin A1c 9.91 H Lactate 2.2 H Calcium 8.4 Total Creatine Kinase 286 H C-Reactive Protein 2.2 H Urine Color Yellow Urine Appearance Clear Urine pH 6.0 Ur Specific Chancellor 1.020 Urine Protein Negative Urine Glucose (UA) 2+ A Urine Ketones Trace A Urine Blood Trace-intact A Urine Nitrite Negative Urine Bilirubin Negative Urine Urobilinogen 1.0 Ur Leukocyte Esterase Negative Urine RBC 2-5 A Urine WBC 0-2 Ur Squamous Epith Cells Few Urine Bacteria None Ethyl Alcohol SARS-CoV-2 (PCR)
[2023-02-26] MEDS: 0.9 % SODIUM CH + KCL 20 mEq/L 1,000 ML 75 ML IV (12:14)
--- NOTE | 2023-02-26 13:40 | PC.SOCIAL ---
Met with pt. to discuss discharge plans. Pt. lives alone in her own home in [place]. Pt. states her son takes her to get groceries every 1-2 weeks and she takes the bu to go to appointments. Pt.'s other son calls her daily to make sure she has taken her medication and to check on her. Her 3 son's assist with snow removal and repairs on the house. Pt. moved well with PT and scored 27/30 on her MOCA. Pt. states she wants to be somewhere where she can get meals, have an exercise room, and make her own meals if needed. Pt. also talked about cleaning assistance in her own home. Discussed assisted living and homeland security program specialist care options. Pt. was not interested in AL's in [place] but wanted a list in the [place] area. Gave pt. a list of area assisted livings in [place] as well as locally. She asked that I update her son Nash. Spoke with resident's son Nash who states they always try to have pt. start looking and touring facilities and she always has an issue with all the assisted livings such as the exercise room is too small. Nash told the physician she would never want anyone to assist her in her home as she is a hoarder. Updated Nash of the resources shared and that [facility]. Nash asked that [facility] at [facility] get pt. into an AL until they can find one she will approve of or that has openings in the area that she wants to live. [facility]
[2023-02-26 15:36] LABS: Lactate* 1.7 mmol/L (0.5-1.9)
[2023-02-26 17:16] LABS: Creatine Kinase* 329 U/L (41-117)
[2023-02-26] MEDS: 0.9 % SODIUM CHLORIDE 1000 ml 1,000 ML 500 ML IV (17:53)
--- NOTE | 2023-02-26 18:01 | PC.NURSE ---
Pt alert and oriented this shift with some noted forgetfulness and incorrect statements such as I would give myself 120 units of insulin for this meal versus the 17unit of Novolog prescribed. Pt can be impulsive and quick with transfers, safety promotion and education given to pt. SBA w/ walker and gaitbelt, up to chair, bed and toilet this shift. TEDs applied to BLE, edema that pt states has improved from her baseline. Pt's vitals stable, on RA during day sating mid 90s%. SSI admin for blood sugars of 158, 193 and 129 this evening. Pt states chronic generalized pain, pt states tolerable with scheduled Naproxen and PRN Tylenol. Pt voiding into hat and has had urinary incontinence into brief this shift, brief changed PRN. x1 large soft formed continent BM this shift. Pt received 1 NS bolus this AM over 4 hrs and in the process of receiving 2nd NS bolus over 2 hours tonight, r/t elevated CK, lactate improved to 1.7 this afternoon, when pt complete with bolus pt on IVF of NS w/ 20mEq K+ 20mEq at 75ml/hr. L eye sclera continued to be reddened and pt states slightly irritating, no drainage noted, new order this evening for lubricating eye drops that pt states she wants to try later tonight. New gown applied, pt washed up and did her hair this shift. Son visited later in afternoon and will be back tomorrow around 1130am he states. Pt has call light within reach and finishing dinner at this time.
[2023-02-26] MEDS: ATORVASTATIN 10 MG TABLET PO (20:27)
[2023-02-27] MEDS: 0.9 % SODIUM CH + KCL 20 mEq/L 1,000 ML 75 ML IV (02:28)
[2023-02-27 03:00] VITALS: BP 142/83; PULSE 69; RESP 20; TEMP 36.3; O2SAT 93
--- NOTE | 2023-02-27 05:20 | ED.NURSE ---
Shift note: Pt has been confused, anxious and fearful. Pt think she is not safe in room. At the start of the shift, pt mentioned to food writer that all the nurses cannot be trusted and they are planning against her. Foam Molder attempted to re-orient pt which was partially successful and went back to bed. Pt attempted self transfer several times, food writer and nurses attend to pt anytime bed alarm went off. At 0500, pt said she does not want food writer in room. Charge nurse asked pt for the reason and she said he wipe my private part with a towel and I think he is trying to hide evidence. This happened after pt requested to see her heart rate on the screen while charge nurse and food writer are with pt in her room. Pulse oximeter applied to left index finger and showed HR of 78 and O2 of 96. Pt said there was some irregularities in her O2 level. Charge nurse attempted to explained to pt that it is within normal range but pt insisted on the irregularities. Charge nurse asked food writer to stay out of pt room and re-oriented her back to bed. Pt has had interrupted sleeping due to confusion and frequency of micturition. Vital signs are WNL.
[2023-02-27 06:14] LABS: Lactate* 1.8 mmol/L (0.5-1.9)
[2023-02-27 06:41] LABS: Creatine Kinase* 238 U/L (41-117)
[2023-02-27] MEDS: OMEPRAZOLE 20 MG CAPSULE DR PO (06:56)
[2023-02-27 07:00] VITALS: BP 133/85; PULSE 68; PULSE 69; RESP 20; TEMP 37.1; O2SAT 95
--- NOTE | 2023-02-27 07:30 | PC.NURSE ---
Addendum entered by Renata Fan RN 02/27/23 07:52: Pt showed that the SDC are to decrease possibility of blood clots and call light was not used to april her up. She stated she wanted police called to get her labs and to fix her sat monitor as she thought it was reading her heart rhythm andit was not even. Tried to explain that it was not reading her heart rate. Was not comprehending. Had geophysical laboratory supervisor come and draw blood early. made aware at 0700. Original Note: Pt became confused and talking about things that had not happened. Talked about nurse using call light to april her up along with the SCD's .
[2023-02-27] MEDS: FUROSEMIDE 40 MG TABLET PO (08:31)
[2023-02-27] MEDS: carvediloL 6.25 MG TABLET PO (08:31)
[2023-02-27] MEDS: TOLTERODINE TARTRATE 2 MG CAP.ER.24H 4 MG PO (08:31)
[2023-02-27] MEDS: LOSARTAN POTASSIUM 50 MG TABLET PO (08:32)
[2023-02-27] MEDS: NAPROXEN 250 MG TABLET PO (08:32)
[2023-02-27] MEDS: ASPIRIN 81 MG TABLET EC PO (08:32)
[2023-02-27] MEDS: ACETAMINOPHEN 500 MG TABLET 1000 MG PO (08:33)
[2023-02-27] MEDS: FLUTICASONE PROPIONATE NASAL 2 SPRAY NOSTRIL-B (08:34)
[2023-02-27] MEDS: CARBOXYMETHYLCELLULOSE (REFRESH PLUS) TEARS 1 DROP EYE-BOTH (10:01)
[2023-02-27 11:05] VITALS: BP 146/80; PULSE 67; RESP 20; TEMP 36.5; O2SAT 95
--- NOTE | 2023-02-27 13:25 | PM.DS1 ---
DS: Providers Provider Date Seen: 02/27/23 Date of admission: 02/25/23 15:54 Primary care physician: Elmira Rodriguez MD Admitting Clinician: Matt Houser MD Consults: 02/25/23 16:16 Consult to Occupational Therapy [CONS] Routine Comment: Reason(s) for OT Consult:: Evaluate and Treat Any Restrictions?:: No Restrictions Comment: weak, fall, unable to get up, impaired cognition - MOCA 30/30 on 05/24/2022 Consult to Physical Therapy [CONS] Routine Comment: Reason(s) for PT Consult:: Evaluate and Treat Any Restrictions?:: No Restrictions Comment: weak, fall, unable to get up Consult to Oil Refinery Operator [CONS] Routine Comment: Reason for Consult:: Discharge Planning Needs 02/25/23 17:32 Consult to Occupational Therapy [CONS] Routine Comment: Reason(s) for OT Consult:: Evaluate and Treat Any Restrictions?:: No Restrictions Consult to Physical Therapy [CONS] Routine Comment: Reason(s) for PT Consult:: Evaluate and Treat Any Restrictions?:: No Restrictions Attending Physician on discharge: [facility]charge: 02/27/23 DS: Diagnosis Discharge Diagnosis (1) Fall: Status: Acute Problem details: -lives alone, on the floor for 2-3 hours. Uninjured 02/25. Physical therapy reports some impulsive movements and dismissive of instructions. Occupational therapy documented a but executive function in regards to chronic disease management and activities of independent living are questionably reliable. (2) Physical deconditioning: Status: Acute Problem details: -weight loss, improved diet needed and regular low impact exercise is singleton (3) Weakness: Status: Acute Problem details: -as above (4) Mild cognitive impairment: Status: Acute Problem details: [place] . More concerning is her executive function as it regards IADLs (5) Diabetes mellitus type 2 in obese: Status: Acute Problem details: A1C 9.9 SSI, accuchecks, home insulin (lantus and regular, no PO meds) (6) Elevated CK: Status: Acute Problem details: downtrending; near normal (7) Lactate blood increase: Status: Acute Problem details: resolved DS: Summary Hospital Course Hospital Course: HOSPITALIST DISCHARGE SUMMARY ATTENDING PHYSICIAN: Cortney Vogt MD FINAL DIAGNOSIS: Fall at home Physical deconditioning Mild cognitive decline Type 2 diabetes Morbidly obese HOSPITAL FOLLOWUP ISSUES: 1. PCP/family: Help create an environment that is safer and in [place] the patient to continue to live as independently as possible. The team in [place] recommended assisted living. The patient has some reservations and may need assistance in making this transition. At a minimum she should have a Life Alert pendant, in home safety eval with OT, outpatient physical and occupational therapy. REFERRALS WHILE ADMITTED: OT, PT, social work REFERRALS AFTER DISCHARGE: None BRIEF HOSPITAL COURSE: Jesenia lives in her own home. She called EMS after a low impact fall at home. She was on the floor for 2-3 hours. She had a mild elevation in her lactate and creatine kinase. PT and OT worked with patient. We noted cognitive decline some impulsive movements, mild lack of insight. No significant medical developments. No medication changes. Our recommendation at discharge was assisted living. SUBSTANTIVE NOTATIONS ON IMAGING, LAB, MICROBIOLOGY/PATHOLOGY STUDIES: Lab investigations were all reassuring. Vital signs have been normal. DISCHARGE MEDICATIONS: See Reconciled list - SIGNIFICANT CHANGES: None REVIEW OF SYSTEMS No new chest pain or dyspnea Pain controlled No voiding difficulties Tolerating diet challenge PHYSICAL EXAM: CONSTITUTIONAL: Alert. Interactive. No acute distress. VITAL SIGNS: see record. HEENT: Normocephalic, atraumatic. PERRL, EOMI, conjunctivae pink, no scleral icterus. Ears and nose externally normal. Pharynx normal. NECK: No JVD. No carotid bruit, no thyromegaly, no adenopathy. CHEST: Clear to auscultation bilaterally. HEART: S1 and S2 normal. Edema ABDOMEN: Soft, nontender. Normal bowel sounds. MUSCULOSKELETAL: No gross joint deformity or swelling. NEURO: Cranial nerves intact. Grossly intact. No asymmetric findings. SKIN: No rashes, petechiae, concerning changes PSYCHIATRIC: Mood euthymic. DISPOSITION: Home with son Time spent on discharge 37 minutes. Status at Discharge Functional status at discharge: uses cane/walker Overall status at discharge: patient is back to baseline Time Spent with Patient Time attestation: Total time spent providing and/or coordinating discharge services: Exam Const: Vital Signs, click to edit/add: Vital Signs - 24 hr 02/26/23 15:00 02/26/23 15:00 02/26/23 15:00 Temperature 97.1 F L Pulse Rate [Pulse Oximeter] 62 62 Respiratory Rate 20 20 20 Blood Pressure [Le ft Arm] 109/84 Pulse Oximetry 93 93 Oxygen Delivery Me thod Room Air Room Air Oxygen Flow Rate 02/26/23 19:00 02/26/23 23:00 02/26/23 23:00 Temperature 96.9 F L Pulse Rate [Pulse Oximeter] 62 62 Respiratory Rate 20 20 20 Blood Pressure [Le ft Arm] 111/62 Pulse Oximetry 96 94 Oxygen Delivery Me thod Room Air Room Air Oxygen Flow Rate 02/26/23 23:00 02/27/23 03:00 02/27/23 07:00 Temperature 97.7 F 97.4 F L Pulse Rate [Pulse Oximeter] 69 69 69 Respiratory Rate 20 20 20 Blood Pressure [Le ft Arm] 131/98 H 142/83 H Pulse Oximetry 94 93 Oxygen Delivery Me thod Room Air Room Air Oxygen Flow Rate 2 02/27/23 07:00 02/27/23 07:00 02/27/23 11:05 Temperature 98.7 F 97.7 F Pulse Rate [Pulse Oximeter] 68 67 Respiratory Rate 20 20 20 Blood Pressure [Le ft Arm] 133/85 146/80 H Pulse Oximetry 95 95 95 Oxygen Delivery Me thod Room Air Room Air Room Air Oxygen Flow Rate DS: Data Data Completed and Pending Labs on day of discharge: Labs from last 24 hours 02/27/23 02/26/23 05:33 15:14 Lactate 1.8 1.7 Total Creatine Kinase 238 H 329 H TSH 3.140 Discharge Plan Discharge Disposition: Home w/ Parent or Adult Date of Admission: 02/25/23 15:54 Attending Provider on Discharge: Cortney Vogt Primary Care Provider: Elmira Rodriguez Condition: Stable Anticipated Discharge Date/Time: 02/27/23 13:17 Discharge Medications: Continued losartan 50 mg tablet 50 mg PO DAILY furosemide 40 mg tablet 40 mg PO BID carvedilol 6.25 mg tablet 6.25 mg PO BID atorvastatin 10 mg tablet 10 mg PO DAILY tolterodine 4 mg capsule,extended release 24hr 4 mg PO DAILY omeprazole 20 mg capsule,delayed release(DR/EC) 20 mg PO DAILY fluticasone propionate 50 mcg/actuation spray,suspension 2 spray INTRANASAL DAILY cyclobenzaprine 5 mg tablet 5 mg PO TID PRN Advair HFA 115-21 mcg/actuation HFA aerosol inhaler 2 puff inhalation BID insulin glargine [Lantus Solostar U-100 Insulin] 100 unit/mL (3 mL) insulin pen 60 unit subcut BID Humalog KwikPen Insulin 200 unit/mL (3 mL) insulin pen 30 - 50 unit subcut TIDWM aspirin 81 mg tablet,delayed release (DR/EC) 81 mg PO DAILY albuterol sulfate 90 mcg/actuation HFA aerosol inhaler 2 inh inhalation Q4H PRN acetaminophen 500 mg tablet 1,000 mg PO Q6H PRN naproxen sodium [Aleve] 220 mg tablet 220 mg PO BIDWM multivitamin [Daily Multi-Vitamin] Tablet 1 tab PO DAILY Discharge Orders: Discharge Order (Routine); Ordered 02/27/23 Ordered By: Cortney Vogt Additional Instructions: Our team feels given the circumstances of your fall, distance from family and medical conditions we'd like you to move to an assisted living facility. You had a close call and could have been more injured and when we see this we recommend a change for our patients. The safety, convenience our patients experience actually adds enjoyment in their life. We see them less hospitalized, less depressed. They see them thrive. Activity Level: Activity as Tolerated Discharge Diet: Diabetic Follow Up Appointments: Elmira Rodriguez MD [Primary Care Provider] - 03/06/23 Forms: [employer] Info Instructions
[2023-02-27 13:47] VITALS: RESP 20; TEMP 36.5
[2023-02-27 14:30] VITALS: BP 146/80; PULSE 67; RESP 20; TEMP 36.5
--- NOTE | 2023-02-27 14:45 | PC.NURSE ---
Pt alert and oriented to rfp writer's questions this AM, but also making comments including there was only one nurse here last night and he wouldn't give me a mask to get rid of 6 pints. Pt also was stating irritation with nursing staff for providing SBA w/ pt during transfers for promotion of safety. Pt encouraged to live in [facility] as pt has had recent fall at home and display intermit forgetfulness/confusion, which pt stated was very upsetting, son aware and encouraging to pt. Pt has had excellent appetite eating entirety of meals, and tolerating PO fluid intake. Pt states pain/discomfort is tolerable with PRN Tylenol and scheduled Naproxen. Pt had shower cap this AM, washed up, got dressed and styled her hair. Pt very adamant about being ind, transfer ability improved once pt's IV able to be saline locked from IV pole. IV catheter removed intact w/o issue prior to d/c. Pt d/c this afternoon with son, going to [facility] across the street as they have open bed availability. Pt given WC ride out by STEPH to son's car. Fire Patroller discussed pt education of diabetes management and fall prevention, pt scoffs when rfp writer discussed education and states I have differing opinions but I understand, pt states she has her meds set up and aware of how to take them. Pt d/c at 1430.
== END 2023-02-27 14:30 | disposition home or self-care (01) ==
LOC: ED 14:00 → MEDSURG 15:54
PROVIDERS: Family Medicine; Admitting Provider Internal Medicine; Emergency Provider Family Medicine; PCP Family Medicine; Visit Provider Internal Medicine
DX: R53.1 Weakness (principal); G31.84 Mild cognitive impairment of uncertain or unknown etiology; R26.2 Difficulty in walking, not elsewhere classified; E11.69 Type 2 diabetes mellitus with other specified complication; E66.9 Obesity, unspecified; R79.89 Other specified abnormal findings of blood chemistry; R74.02 Elevation of levels of lactic acid dehydrogenase [LDH]; K42.9 Umbilical hernia without obstruction or gangrene; G47.33 Obstructive sleep apnea (adult) (pediatric); Z99.89 Dependence on other enabling machines and devices; E66.01 Morbid (severe) obesity due to excess calories; Z68.42 Body mass index [BMI] 45.0-49.9, adult; Z71.3 Dietary counseling and surveillance; W19.XXXA Unspecified fall, initial encounter; Z79.4 Long term (current) use of insulin; I10 Essential (primary) hypertension; R63.4 Abnormal weight loss; M48.02 Spinal stenosis, cervical region; M48.061 Spinal stenosis, lumbar region without neurogenic claudication; K21.9 Gastro-esophageal reflux disease without esophagitis; E78.5 Hyperlipidemia, unspecified; R51.9 Headache, unspecified; R39.15 Urgency of urination; Z98.890 Other specified postprocedural states; Z86.010 Personal history of colon polyps; Z98.51 Tubal ligation status; Z90.49 Acquired absence of other specified parts of digestive tract; Z96.653 Presence of artificial knee joint, bilateral; Z98.49 Cataract extraction status, unspecified eye; Z90.710 Acquired absence of both cervix and uterus; Z90.10 Acquired absence of unspecified breast and nipple; Z66 Do not resuscitate
CPT/HCPCS: 36415; 80048; 81001; 82077; 82550; 82803; 82962; 83036; 83605; 84443; 85025; 86140; 87635; 96361; 96365; 96366; 96372; 97110; 97116; 97161; 97165; 97530; 97535; 99284; A9270; G0378; J7030

== ENCOUNTER 2023-07-18 03:25 | Outpatient (CLI) | payer MEDICARE, BC, SELFPAY | END 2023-07-18 03:26 | disposition home or self-care (01) | LOC: AMB 07-24 09:12 | PROVIDERS: PCP Family Medicine; Visit Provider Family Medicine | DX: R06.09 Other forms of dyspnea (principal); I95.9 Hypotension, unspecified; R42 Dizziness and giddiness | CPT/HCPCS: A0425; A0427 ==

== ENCOUNTER 2023-07-18 03:57 | Inpatient (IN) | payer MEDICARE, BC, SELFPAY ==
[2023-07-18] VITALS (43 sets, daily range): BP systolic 80–142; BP diastolic 45–77; PULSE 50–78; RESP 16–24; TEMP 35.8–36.9; O2SAT 92–98; BMI 46.6
--- NOTE | 2023-07-18 04:20 | ED_ITS ---
HPI - General Adult General Chief complaint: Weakness Stated complaint: shortness of breath Time Seen by Provider: 07/18/23 04:20 History of Present Illness HPI narrative: Pt aox4, ABCs intact. Pt c/o waking up with brief period of SOB, feeling warm and shaky. Upon EMS arrival patient was hypotensive and bradycardic in the 50s. After 250mL of fluid patients MAP became >65 per EMS. Patient denies any new chest pain or SOB. Patient did have a fall yesterday. Of note, the shortness of breath did resolve prior to EMS arrival. 82-year-old woman presenting to the emergency department via EMS with concern of bradycardia and hypotension. Jesenia reports that she woke from sleep feeling warm and was shaking and that while her heart was not tachycardic it was beating hard. She says her heart rate is normally slow and she thinks that her pressures are low because provider have trouble hearing her heartbeat. She says she was sweating when she woke and now she says she does not feel warm any more so now she just feels chilled. She did slip and fall yesterday. Sounds like she slipped from the edge of her bed onto her knees. She hesitates to end up on her knees as she has had them replaced she says. Not complaining of pain in her knees unless they are touched. She has not had any noted fever. Has not been coughing. Does report getting some intermittent back pain which she associates with arthritis. Indicates lower left and that that is not new. Otherwise is not having abdominal pain. She was not having chest pain. Later questioning reveals that she has had some looser stools lately maybe. Interview is challenged by difficulty with recall and expression and pleasantly meandering responses to questions. She does live alone and she and family are looking for assisted living. Related Data Home Medications Medication Instructions Recorded Confirmed acetaminophen 500 mg tablet 1,000 mg PO Q6H PRN 02/25/23 07/18/23 albuterol sulfate 90 mcg/actuation 2 inh inhalation Q4H PRN 02/25/23 07/18/23 aerosol inhaler aspirin 81 mg tablet,delayed 81 mg PO DAILY 02/25/23 07/18/23 release atorvastatin 10 mg tablet 10 mg PO DAILY 02/25/23 07/18/23 carvedilol 6.25 mg tablet 6.25 mg PO BID 02/25/23 07/18/23 cyclobenzaprine 5 mg tablet 5 mg PO TID PRN 02/25/23 07/18/23 fluticasone propionate 115 2 puff inhalation BID 02/25/23 07/18/23 mcg-salmeterol 21 mcg/actuation HFA inhaler (Advair HFA) fluticasone propionate 50 2 spray intranasal DAILY 02/25/23 07/18/23 mcg/actuation nasal spray,suspension furosemide 40 mg tablet 40 mg PO BID 02/25/23 07/18/23 insulin glargine 100 unit/mL (3 60 unit subcut BID 02/25/23 07/18/23 mL) subcutaneous pen (Lantus Solostar U-100 Insulin) insulin lispro 200 unit/mL (3 mL) 30 - 50 unit subcut TIDWM 02/25/23 07/18/23 subcutaneous pen (Humalog KwikPen U-200 Insulin) losartan 50 mg tablet 50 mg PO DAILY 02/25/23 07/18/23 multivitamin (Daily Multi-Vitamin 1 tab PO DAILY 02/25/23 07/18/23 tablet) naproxen sodium 220 mg tablet 220 mg PO BIDWM 02/25/23 07/18/23 (Aleve) omeprazole 20 mg capsule,delayed 20 mg PO DAILY 02/25/23 07/18/23 release tolterodine 4 mg capsule,extended 4 mg PO DAILY 02/25/23 07/18/23 release 24 hr Allergies Allergy/AdvReac Type Severity Reaction Status Date / Time lisinopril Allergy Verified 07/18/23 04:14 nitrofurantoin Allergy Verified 07/18/23 04:14 [From Macrodantin] Review of Systems Status of ROS: Reports: 6 or more systems reviewed and unremarkable except as noted in History and below [facility] Medical History Fall ?W19.XXXA - Unspecified fall, initial encounter (ICD-10) External hemorrhoids ?K64.4 - Residual hemorrhoidal skin tags (ICD-10) Lumbar spinal stenosis ?M48.061 - Spinal stenosis, lumbar region without neurogenic claudication (ICD-10) Mild persistent asthma without complication ?J45.30 - Mild persistent asthma, uncomplicated (ICD-10) Urinary urgency ?R39.15 - Urgency of urination (ICD-10) Gastroesophageal reflux disease ?K21.9 - Gastro-esophageal reflux disease without esophagitis (ICD-10) Mild cognitive impairment ?G31.84 - Mild cognitive impairment of uncertain or unknown etiology (ICD-10) Diabetic peripheral neuropathy ?E11.42 - Type 2 diabetes mellitus with diabetic polyneuropathy (ICD-10) Major depression ?F32.9 - Major depressive disorder, single episode, unspecified (ICD-10) Vitamin B12 deficiency ?E53.8 - Deficiency of other specified B group vitamins (ICD-10) Insulin resistance ?E88.81 - Metabolic syndrome (ICD-10) Long-term insulin use ?Z79.4 - equipment operator intermodal yard (current) use of insulin (ICD-10) Cervical spinal stenosis ?M48.02 - Spinal stenosis, cervical region (ICD-10) Lymphedema of both lower extremities ?I89.0 - Lymphedema, not elsewhere classified (ICD-10) Aneurysm of left iliac artery ?I72.3 - Aneurysm of iliac artery (ICD-10) STEPHANIE on CPAP ?G47.33 - Obstructive sleep apnea (adult) (pediatric) (ICD-10) ?Z99.89 - Dependence on other enabling machines and devices (ICD-10) Obstructive sleep apnea ?G47.33 - Obstructive sleep apnea (adult) (pediatric) (ICD-10) Adenomatous colon polyp ?D12.6 - Benign neoplasm of colon, unspecified (ICD-10) Hyperlipidemia ?E78.5 - Hyperlipidemia, unspecified (ICD-10) Chronic obstructive pulmonary disease ?J44.9 - Chronic obstructive pulmonary disease, unspecified (ICD-10) Morbid obesity ?E66.01 - Morbid (severe) obesity due to excess calories (ICD-10) Essential hypertension ?I10 - Essential (primary) hypertension (ICD-10) Diabetes mellitus type 2 in obese ?E11.69 - Type 2 diabetes mellitus with other specified complication (ICD-10) ?E66.9 - Obesity, unspecified (ICD-10) Surgical History History of strabismus surgery ?Z98.890 - Other specified postprocedural states (ICD-10) History of tubal ligation ?Z98.51 - Tubal ligation status (ICD-10) History of laminectomy ?Z98.890 - Other specified postprocedural states (ICD-10) Status post mastectomy ?Z90.10 - Acquired absence of unspecified breast and nipple (ICD-10) Status post bilateral knee replacements ?Z96.653 - Presence of artificial knee joint, bilateral (ICD-10) Status post hysterectomy ?Z90.710 - Acquired absence of both cervix and uterus (ICD-10) Status post dilatation and curettage ?Z98.890 - Other specified postprocedural states (ICD-10) History of colonoscopy with polypectomy ?Z98.890 - Other specified postprocedural states (ICD-10) ?Z86.010 - Personal history of colonic polyps (ICD-10) Status post cataract extraction ?Z98.49 - Cataract extraction status, unspecified eye (ICD-10) Status post appendectomy ?Z90.49 - Acquired absence of other specified parts of digestive tract (ICD- 10) Family History Mother Alzheimers disease Social History Narrative: Lives alone in private home. As of 02/25/2023 patient indicates she has been trying to convince her children that she needs to live in a setting where she can receive help due to her evolving physical and cognitive decline. Would like to move to the [facility], closer to 2 sons and her sister. Eugenia gnates her son, Elier, as her healthcare power of corporate associate attorney should that be required. Requests DNR DNI resuscitation in the event of cardiopulmonary demise. Dr. Elmira Rodriguez is her primary care physician. Highest level of school completed/degree received: some college, no degree Smoking Status: Never smoker How often do you have a drink containing alcohol: never AUDIT-C Alcohol total score: 0 Non-prescribed substance use: denies use Caffeine: Yes (Daily) service: No Exam Narrative: Exam Narrative: Is pleasant. Fully alert. There is some lateral deviation I think of the left eye relative to the right. Pupils are equal brisk reactive to light accommodation. Mouth is quite dry. Breathing easily though a little congested I would say consistent with body habitus. With assistance to sit she does seem little weak and deconditioned. Lungs are clear. Abdomen is soft obese. Diastasis recti. She also has small noninflamed supraumbilical hernia. Mildly uncomfortable perhaps more so to palpation the right lower abdomen. No masses. No peritoneal signs. Both knees have blisters on them which apparently is consistent her time on her knees yesterday and she is tender generally palpation. Postoperative scars evident. I do not see erythema nor does she have significant pain with flexing the knee. Lower legs with nearly 2+ pitting edema. There is a band of erythema distally bilaterally with changes consistent with chronic edema. Erythema bilaterally without significant calor. Do not think rises to cellulitis. Const: Vital Signs, click to edit/add: Vital Signs - 24 hr 07/18/23 04:08 07/18/23 04:13 07/18/23 04:15 Temperature 97.8 F Pulse Rate 54 L 53 L Pulse Rate [Left] 53 L Respiratory Rate 24 Blood Pressure Blood Pressure [Ri ght Upper Arm] 92/51 L Pulse Oximetry 94 94 93 Oxygen Delivery Me od Room Air 07/18/23 04:16 07/18/23 04:17 07/18/23 04:30 Temperature Pulse Rate 53 L 54 L 58 L Pulse Rate [Left] Respiratory Rate Blood Pressure 99/54 L Blood Pressure [Ri ght Upper Arm] Pulse Oximetry 94 94 95 Oxygen Delivery Me thod 07/18/23 04:31 07/18/23 04:41 07/18/23 04:46 Temperature Pulse Rate 58 L 55 L Pulse Rate [Left] Respiratory Rate Blood Pressure 121/61 98/53 L Blood Pressure [Ri ght Upper Arm] Pulse Oximetry 96 98 95 Oxygen Delivery Ak thod 07/18/23 05:01 07/18/23 06:07 07/18/23 06:34 Temperature Pulse Rate 53 L 56 L 57 L Pulse Rate [Left] Respiratory Rate 18 Blood Pressure 92/53 L 91/50 L Blood Pressure [Ri ght Upper Arm] Pulse Oximetry 96 94 94 Oxygen Delivery Me thod 07/18/23 06:38 07/18/23 06:45 07/18/23 06:47 Temperature Pulse Rate 55 L 50 L 51 L Pulse Rate [Left] Respiratory Rate Blood Pressure 91/57 L Blood Pressure [Ri ght Upper Arm] Pulse Oximetry 95 95 93 Oxygen Delivery Ak thod 07/18/23 06:51 07/18/23 06:52 07/18/23 07:00 Temperature Pulse Rate 51 L 52 L 52 L Pulse Rate [Left] Respiratory Rate Blood Pressure 96/46 L Blood Pressure [Ri ght Upper Arm] Pulse Oximetry 94 94 95 Oxygen Delivery Me thod 07/18/23 07:01 07/18/23 07:13 07/18/23 07:15 Temperature 97.1 F L Pulse Rate 53 L 52 L Pulse Rate [Left] 52 L Respiratory Rate 16 Blood Pressure 94/51 L Blood Pressure [Ri ght Upper Arm] Pulse Oximetry 95 95 95 Oxygen Delivery Me thod Room Air 07/18/23 07:16 07/18/23 08:06 07/18/23 08:08 Temperature Pulse Rate 51 L 54 L 52 L Pulse Rate [Left] Respiratory Rate Blood Pressure 103/58 L 88/45 L Blood Pressure [Ri ght Upper Arm] Pulse Oximetry 95 94 95 Oxygen Delivery Me thod 07/18/23 08:09 07/18/23 08:15 07/18/23 08:16 Temperature Pulse Rate 52 L 51 L 51 L Pulse Rate [Left] Respiratory Rate Blood Pressure 107/66 94/54 L Blood Pressure [Ri ght Upper Arm] Pulse Oximetry 97 96 95 Oxygen Delivery Me thod 07/18/23 08:30 07/18/23 08:31 Temperature Pulse Rate 52 L 51 L Pulse Rate [Left] Respiratory Rate Blood Pressure 91/57 L Blood Pressure [Ri ght Upper Arm] Pulse Oximetry 95 94 Oxygen Delivery Me thod Documenting provider has reviewed patient's vital signs: yes Course Vital Signs Vital signs: Initial Vital Signs Temperature 97.8 F 07/18/23 04:08 Temperature Source Temporal Artery Scan 07/18/23 04:08 Pulse Rate 53 L 07/18/23 04:08 Respiratory Rate 07/18/23 04:08 Blood Pressure 92/51 L 07/18/23 04:08 Blood Pressure Mean 64 L 07/18/23 04:08 Pulse Oximetry 94 07/18/23 04:08 Oxygen Delivery Method Room Air 07/18/23 04:08 Vital Signs Temperature 97.8 F 07/18/23 04:08 Pulse Rate 53 L 07/18/23 04:08 Respiratory Rate 24 07/18/23 04:08 Blood Pressure 92/51 L 07/18/23 04:08 Pulse Oximetry 94 07/18/23 04:08 Oxygen Delivery Method Room Air 07/18/23 04:08 Temperature 97.1 F L 07/18/23 07:13 Pulse Rate 51 L 07/18/23 08:31 Respiratory Rate 16 07/18/23 07:13 Blood Pressure 91/57 L 07/18/23 08:31 Pulse Oximetry 94 07/18/23 08:31 Oxygen Delivery Method Room Air 07/18/23 07:13 Medical Decision Making MDM Narrative Medical decision making narrative: Reviewing records I do see that often heart rate is a little lower but usually in the 60s. Is a been in the low 50s here now. Furthermore pressures are softer than usual in the mid 90s over 50s where normally is 1 teens 120s systolic at least or so on prior evaluation here. I do not know if the shakes from which she woke from sleep might represent rigors. Perhaps there was a compounding attack of anxiety. She does seem otherwise well here but generally weak. Initiated fluid hydration and searching for source of infection. Blood cultures. Watch for arrhythmia/dysrhythmia. Ischemic cardiovascular event? Medication effect? Is on diuretic and beta deja. Prolonged initiation of cares. Difficult to establish IV. Chest x-ray reviewed by me does not appear to have infiltrative process. Over- read by radiology as below INDICATION: shaking, chills TECHNIQUE: Chest 1 views. COMPARISON: November 21, 2021 IMPRESSION: Cardiovascular and mediastinum: Similar mild prominence of the cardiomediastinal silhouette. Lungs and pleural spaces: Hyperinflation and chronic interstitial changes similar to prior. No sign of infiltrate. No sign of pleural effusion. No pneumothorax. Bones and soft tissues: No significant findings. Has continued with lower pressures and bradycardic. Otherwise well. Although recently up with assistance to bathroom became more lightheaded again. Recheck on blood pressures were 88 over 40s. Rebounded to 103 systolic. She did have an episode of diarrhea. Sepsis does remain in differential although lactate is really only notably abnormal lab. 2 L normal saline. I discussed this case with our hospitalist for admission further monitoring cares. Anticipating admission shortly. Medical Records Medical records reviewed: Yes I reviewed the patient's medical records Lab Data Lab results reviewed: Yes I reviewed the patient's lab results Labs: Lab Results 07/18/23 07/18/23 07/18/23 Range/Units 05:05 05:08 05:10 WBC 5.22 (4.50-11.00) K/uL RBC 4.18 (4.00-5.20) m/uL Hgb 11.8 L (12.0-16.0) gm/dL Hct 37.6 (33.0-51.0) % MCV 90 (80-100) fL MCH 28 (26-34) pg MCHC 31 L (32-36) gm/dL RDW Coeff of Blanche 14.5 (11.5-15.5) % Plt Count 147 (140-440) K/uL Neut % (Auto) 63.7 (42.0-72.0) % Lymph % (Auto) 23.0 (20-44) % [place] % (Auto) 8.0 (0.0-11.0) % Eos % (Auto) 4.0 (0.0-7.0) % Baso % (Auto) 0.2 (0.0-3.0) % Neut # (Auto) 3.32 (1.7-7.0) K/uL Lymph # (Auto) 1.20 (0.90-2.90) K/uL [place] # (Auto) 0.40 (0.00-0.90) K/UL Eos # (Auto) 0.21 (0.00-0.50) K/uL Baso # (Auto) 0.01 (0.00-0.30) K/uL Abs Immat Gran (auto) 0.06 (0.00-0.30) K/uL Imm/Tot Granulo (auto) 1.1 % Sodium 143 (135-149) mmol/L Potassium 3.2 L (3.6-5.1) mmol/L Chloride 105 (96-114) mmol/L Carbon Dioxide 27 (20-32) mmol/L BUN 33 H (7-30) mg/dL Creatinine 0.8 (0.5-1.5) mg/dL Estimated GFR 74 ml/min Glucose 72 (60-115) mg/dL Lactate 3.4 H (0.5-1.9) mmol/L Calcium 9.4 (8.4-10.6) mg/dL Magnesium 1.8 (1.5-2.6) mg/dL Total Bilirubin 0.7 (0.1-1.5) mg/dL Direct Bilirubin 0.1 (0.0-0.5) mg/dL AST 60 H (12-35) U/L ALT 35 (4-35) U/L Alkaline Phosphatase 78 (40-150) U/L Troponin I 0.01 (0.01-0.04) ng/mL C-Reactive Protein 1.3 H (0.5-1.0) mg/dL NT-Pro-B Natriuret Pep 309 pg/mL Total Protein 6.4 (6.0-8.3) g/dL Albumin 3.8 (3.3-5.0) g/dL Urine Color (Yellow) Urine Appearance (Clear) Urine pH (5.0-8.5) Ur Specific [place] (1.000-1.030) Urine Protein (Negative) Urine Glucose (UA) (Negative) Urine Ketones (Negative) Urine Blood (Negative) Urine Nitrite (Negative) Urine Bilirubin (Negative) Urine Urobilinogen (0.2-1.0) Ur Leukocyte Esterase (Negative) Urine RBC (0-2) Urine WBC (0-5) Ur Squamous Epith Cells (None-Few) Urine Bacteria (None) SARS-CoV-2 (PCR) Negative SARS-CoV-2 (Negative) Influenza Type A (PCR) Negative PCR FLU A (Negative) Influenza Type B (PCR) Negative PCR FLU B (Negative) POC Troponin I 0.01 (0.01-0.04) ng/ml 07/18/23 Range/Units 05:35 WBC (4.50-11.00) K/uL RBC (4.00-5.20) m/uL Hgb (12.0-16.0) gm/dL Hct (33.0-51.0) % MCV (80-100) fL MCH (26-34) pg MCHC (32-36) gm/dL RDW Coeff of Blanche (11.5-15.5) % Plt Count (140-440) K/uL Neut % (Auto) (42.0-72.0) % Lymph % (Auto) (20-44) % [place] % (Auto) (0.0-11.0) % Eos % (Auto) (0.0-7.0) % Baso % (Auto) (0.0-3.0) % Neut # (Auto) (1.7-7.0) K/uL Lymph # (Auto) (0.90-2.90) K/uL [place] # (Auto) (0.00-0.90) K/UL Eos # (Auto) (0.00-0.50) K/uL Baso # (Auto) (0.00-0.30) K/uL Abs Immat Gran (auto) (0.00-0.30) K/uL Imm/Tot Granulo (auto) % Sodium (135-149) mmol/L Potassium (3.6-5.1) mmol/L Chloride (96-114) mmol/L Carbon Dioxide (20-32) mmol/L BUN (7-30) mg/dL Creatinine (0.5-1.5) mg/dL Estimated GFR ml/min Glucose (60-115) mg/dL Lactate (0.5-1.9) mmol/L Calcium (8.4-10.6) mg/dL Magnesium (1.5-2.6) mg/dL Total Bilirubin (0.1-1.5) mg/dL Direct Bilirubin (0.0-0.5) mg/dL AST (12-35) U/L ALT (4-35) U/L Alkaline Phosphatase (40-150) U/L Troponin I (0.01-0.04) ng/mL C-Reactive Protein (0.5-1.0) mg/dL NT-Pro-B Natriuret Pep pg/mL Total Protein (6.0-8.3) g/dL Albumin (3.3-5.0) g/dL Urine Color Yellow (Yellow) Urine Appearance Slightly Cloudy A (Clear) Urine pH 6.0 (5.0-8.5) Ur Specific [place] 1.010 (1.000-1.030) Urine Protein Negative (Negative) Urine Glucose (UA) Negative (Negative) Urine Ketones Negative (Negative) Urine Blood Negative (Negative) Urine Nitrite Negative (Negative) Urine Bilirubin Negative (Negative) Urine Urobilinogen 0.2 (0.2-1.0) Ur Leukocyte Esterase Trace A (Negative) Urine RBC 0-2 (0-2) Urine WBC 2-5 (0-5) Ur Squamous Epith Cells Few (None-Few) Urine Bacteria Many A (None) SARS-CoV-2 (PCR) (Negative) Influenza Type A (PCR) (Negative) Influenza Type B (PCR) (Negative) POC Troponin I (0.01-0.04) ng/ml ECG Data Attestation: I personally reviewed and interpreted this ECG as follows: (Sinus bradycardia low amplitude. No acute ischemic changes. Rate of 52) Discharge Plan Discharge Clinical Impression: Weakness, Dehydration, Diarrhea Patient Disposition: Admitted As Observation Condition: Stable
[2023-07-18] MEDS: 0.9 % SODIUM CHLORIDE 1000 ml 1,000 ML IV (05:00)
[2023-07-18 05:15] LABS: Lactate* 3.4 mmol/L (0.5-1.9)
[2023-07-18 05:24] LABS: Basophils Absolute Auto 0.01 K/uL (0.00-0.30); Basophils Percent Auto 0.2 % (0.0-3.0); Eosinophils Absolute Auto 0.21 K/uL (0.00-0.50); Hematocrit 37.6 % (33.0-51.0); Hemoglobin* 11.8 gm/dL (12.0-16.0); Immature Granulocytes Abs Auto 0.06 K/uL (0.00-0.30); Immature Granulocytes Pct Auto 1.1 %; Mean Corpuscular HGB Conc 31 gm/dL (32-36); Mean Corpuscular Hemoglobin 28 pg (26-34); Mean Corpuscular Volume 90 fL (80-100); Neutrophils Absolute Auto 3.32 K/uL (1.7-7.0); Neutrophils Percent Auto 63.7 % (42.0-72.0); Platelet Count* 147 K/uL (140-440); RDW Coefficient of Variation % 14.5 % (11.5-15.5); Red Blood Count 4.18 m/uL (4.00-5.20); White Blood Count* 5.22 K/uL (4.50-11.00)
[2023-07-18 05:28] LABS: Slide Review Reflex No
[2023-07-18 05:29] LABS: Troponin, Point-of-Care* 0.01 ng/ml (0.01-0.04)
--- NOTE | 2023-07-18 05:36 | CRLHL7_ITS ---
For Patients: As a result of the Cures Act, medical imaging exams and procedure reports are released immediately into your electronic medical record. You may view this report before your referring provider. If you have questions, please contact your health care provider. INDICATION: shaking, chills TECHNIQUE: Chest 1 views. COMPARISON: November 21, 2021 IMPRESSION: Cardiovascular and mediastinum: Similar mild prominence of the cardiomediastinal silhouette. Lungs and pleural spaces: Hyperinflation and chronic interstitial changes similar to prior. No sign of infiltrate. No sign of pleural effusion. No pneumothorax. Bones and soft tissues: No significant findings. Dictated by Kieran Bassett MD @ 07/18/2023 7:53:33 AM (Electronically Signed)
[2023-07-18 05:38] LABS: Chloride* 105 mmol/L (96-114); Potassium* 3.2 mmol/L (3.6-5.1); Sodium* 143 mmol/L (135-149)
[2023-07-18 05:39] LABS: Albumin* 3.8 g/dL (3.3-5.0)
[2023-07-18 05:41] LABS: Blood Urea Nitrogen* 33 mg/dL (7-30); Calcium* 9.4 mg/dL (8.4-10.6); Carbon Dioxide* 27 mmol/L (20-32); Creatinine* 0.8 mg/dL (0.5-1.5); Estimated Glomerular Filt Rate 74 ml/min; Glucose* 72 mg/dL (60-115)
[2023-07-18 05:42] LABS: Alanine Aminotransferase* 35 U/L (4-35); Alkaline Phosphatase* 78 U/L (40-150); Aspartate Amino Transferase* 60 U/L (12-35); Bilirubin Direct* 0.1 mg/dL (0.0-0.5); Bilirubin Total* 0.7 mg/dL (0.1-1.5); Magnesium* 1.8 mg/dL (1.5-2.6); Total Protein* 6.4 g/dL (6.0-8.3)
[2023-07-18 05:44] LABS: Appearance Urine Slightly Cloudy (Clear); Bilirubin Urine Negative (Negative); Blood Urine Negative (Negative); Color Urine Yellow (Yellow); Glucose Urine Negative (Negative); Ketones Urine Negative (Negative); Leukocyte Esterase Urine Trace (Negative); Nitrite Urine Negative (Negative); Protein Urine Negative (Negative); Urobilinogen Urine 0.2 (0.2-1.0)
[2023-07-18 05:45] LABS: C Reactive Protein* 1.3 mg/dL (0.5-1.0)
--- NOTE | 2023-07-18 05:45 | ED.NURSE ---
[facility] and [facility]. Patient able to assist herself into the wheelchair. Denies feeling dizzy or lightheaded at this time. Patient was able to leave a urine sample and had a large bowel movement. Patients brief changed. Patient assisted back into bed.
[2023-07-18 05:52] LABS: Bacteria Urine Many; RBC Urine 0-2 (0-2); Squamous Epithelial Cell Urine Few (None-Few)
[2023-07-18 05:53] LABS: Troponin I* 0.01 ng/mL (0.01-0.04)
[2023-07-18 05:55] LABS: NT Pro B Type NatriureticPept* 309 pg/mL
[2023-07-18 05:55] LABS: PCR FLU A Negative PCR FLU A (Negative); PCR FLU B Negative PCR FLU B (Negative)
[2023-07-18 06:09] LABS: SARS PCR* Negative SARS-CoV-2 (Negative)
[2023-07-18] MEDS: 0.9 % SODIUM CHLORIDE 1000 ml 1,000 ML 2000 ML IV (07:55)
--- NOTE | 2023-07-18 08:10 | ED.NURSE ---
was up to br to void and had loose stools and urinated. was on the toilet for ~30 min. did feel weak. color more pale and was nauseated. returned to bed and dr lopez is examining. hs aware of admission. upon arrival back to bed had bp of 88/45. dr lopez aware.
--- NOTE | 2023-07-18 09:22 | ED.NURSE ---
does have some memory issues and is vague about time of events. is easily reoriented.
--- NOTE | 2023-07-18 09:50 | ED.NURSE ---
Patient is up on commode noting she feels foggy. She has concerns her blood sugar is elevated. POC glucose 40. Patient drinking x2 apple juice boxes and eating lucretia crackers. updated. MS RN updated.
[2023-07-18 09:56] LABS: Glucose, Point-of-Care* 40 mg/dl (60-115)
--- NOTE | 2023-07-18 10:05 | ED.NURSE ---
report was called to lena cruz. will go to 245 via w/c.. had more diarrhea and urine on commode. lena cruz aware of lower bs and tolerated eating and drinking.
--- NOTE | 2023-07-18 10:15 | ED.NURSE ---
Patient's son Amol updated that patient is admitted to [facility] unit. He will call there for updates. Wants us to know the family has been touring [facility] assisted living in [place]. MS aware.
[2023-07-18] MEDS: ACETAMINOPHEN 325 MG TABLET 650 MG PO (11:03)
--- NOTE | 2023-07-18 11:36 | PC.NURSE ---
Patient has a difficulty at times finding her words. Not sure if this is acute or chronic
--- NOTE | 2023-07-18 14:02 | PM.IMHP1 ---
Hospitalist- H&P: HPI History of Present Illness Time Seen by Provider: 10:00 Date Seen: 07/18/23 Chief complaint: shortness of breath Narrative: Jesenia Rudolph is a 82 year old woman who lives alone in her home, presents via EMS noting that she was afraid that something was wrong and she might not be able to call for help. She went to bed last night feeling well. Awoke in the middle night with the urge to urinate. Had transient episodes of feeling hot, short of breath, chest pain. These resolved promptly. She was afraid. She tells me she could not figure out what was wrong. She was uncertain what to do, and was concerned that she was going to feel worse. She eventually decided to call 911 stating that she wanted to call before she could not call. When EMS staff arrived reportedly her systolic blood pressure was 90, heart rate was in the 50s. They started a bolus of normal saline. As I visit with the patient it becomes clear that she is not able to give a reliable history. Nevertheless the above history reflects her statements. Similarly with the history that I will be reciting hereafter. As I visit with patient she tries to tell me how she had a fall at home yesterday. She tells me that she fell around 9 in morning onto her knees. She was not able to help herself up until 7 at night. She was able to scoot around the floor of the home until she got to the kitchen at the top of the stairwell that leads to the basement and she was able to pull herself up. She tells me she thinks she called her son Amol but it might of been Niya. She is not able to tell me what transpired thereafter. I do have a telephone number for her son, Niya, . Niya indicates that his mother never called him about this fall incident. He tells me she has had multiple falls. He states her cognition has been declining. He wonders if she might be thinking of a fall that might have occurred at some other time. Niya indicates that if this happened as his mother states, and she did call Amol, Amol would have called and informed him promptly. Additionally, Niya indicates that he and his other siblings have been trying to convince their mother to move out of her home and into assisted living facility for the better part of the last 6 months. They did find an assisted living facility in [facility], that the patient said she would be interested in considering further. This just happened last week. Niya, Amol, and Nash, the patient's sons, indicate that they do not think it is a further mother to remain living in her home alone. They are not sure that she is taking her medications as prescribed. They do not believe she is measuring her blood sugars at home. They are uncertain about how she is eating and drinking. They note she has had multiple falls over the last few months. She has not had any major injuries from these falls. Review of Systems Status of ROS: Reports: 10 or more systems reviewed and unremarkable except as noted in History and below Narrative: She denies fevers, rigors, or diaphoresis. Denies dysuria, urgency, frequency, hematuria. Denies cough, dyspnea at rest, paroxysmal nocturnal dyspnea, orthopnea. She acknowledges baseline dyspnea with exertion. This is not any different. Denies chest heaviness, pressure, tightness, or pain, except for the brief episode of chest pain that she had when she was feeling scared earlier today when she finally came into the hospital. She has not had any chest pain since or prior to that. Denies syncope or near-syncope. With her multiple falls, even the purported fall that may have occurred yesterday, she clearly indicates she has not lost consciousness or struck her head or injured herself in any other way aside from an abrasion that she has on her knees. Denies any new rashes. Acknowledges redness around her ankles which is chronic. Does have chronic edema of bilateral lower extremities. Does not measure her blood sugars at home to know what they are running. Not very clear about her oral intake. Acknowledges intermittent loose stools. Denies blood loss of any sort. [facility] Medical History Fall ?W19.XXXA - Unspecified fall, initial encounter (ICD-10) External hemorrhoids ?K64.4 - Residual hemorrhoidal skin tags (ICD-10) Lumbar spinal stenosis ?M48.061 - Spinal stenosis, lumbar region without neurogenic claudication (ICD-10) Mild persistent asthma without complication ?J45.30 - Mild persistent asthma, uncomplicated (ICD-10) Urinary urgency ?R39.15 - Urgency of urination (ICD-10) Gastroesophageal reflux disease ?K21.9 - Gastro-esophageal reflux disease without esophagitis (ICD-10) Mild cognitive impairment ?G31.84 - Mild cognitive impairment of uncertain or unknown etiology (ICD-10) Diabetic peripheral neuropathy ?E11.42 - Type 2 diabetes mellitus with diabetic polyneuropathy (ICD-10) Major depression ?F32.9 - Major depressive disorder, single episode, unspecified (ICD-10) Vitamin B12 deficiency ?E53.8 - Deficiency of other specified B group vitamins (ICD-10) Insulin resistance ?E88.81 - Metabolic syndrome (ICD-10) Long-term insulin use ?Z79.4 - penitentiary (current) use of insulin (ICD-10) Cervical spinal stenosis ?M48.02 - Spinal stenosis, cervical region (ICD-10) Lymphedema of both lower extremities ?I89.0 - Lymphedema, not elsewhere classified (ICD-10) Aneurysm of left iliac artery ?I72.3 - Aneurysm of iliac artery (ICD-10) STEPHANIE on CPAP ?G47.33 - Obstructive sleep apnea (adult) (pediatric) (ICD-10) ?Z99.89 - Dependence on other enabling machines and devices (ICD-10) Obstructive sleep apnea ?G47.33 - Obstructive sleep apnea (adult) (pediatric) (ICD-10) Adenomatous colon polyp ?D12.6 - Benign neoplasm of colon, unspecified (ICD-10) Hyperlipidemia ?E78.5 - Hyperlipidemia, unspecified (ICD-10) Chronic obstructive pulmonary disease ?J44.9 - Chronic obstructive pulmonary disease, unspecified (ICD-10) Morbid obesity ?E66.01 - Morbid (severe) obesity due to excess calories (ICD-10) Essential hypertension ?I10 - Essential (primary) hypertension (ICD-10) Diabetes mellitus type 2 in obese ?E11.69 - Type 2 diabetes mellitus with other specified complication (ICD-10) ?E66.9 - Obesity, unspecified (ICD-10) Surgical History History of strabismus surgery ?Z98.890 - Other specified postprocedural states (ICD-10) History of tubal ligation ?Z98.51 - Tubal ligation status (ICD-10) History of laminectomy ?Z98.890 - Other specified postprocedural states (ICD-10) Status post mastectomy ?Z90.10 - Acquired absence of unspecified breast and nipple (ICD-10) Status post bilateral knee replacements ?Z96.653 - Presence of artificial knee joint, bilateral (ICD-10) Status post hysterectomy ?Z90.710 - Acquired absence of both cervix and uterus (ICD-10) Status post dilatation and curettage ?Z98.890 - Other specified postprocedural states (ICD-10) History of colonoscopy with polypectomy ?Z98.890 - Other specified postprocedural states (ICD-10) ?Z86.010 - Personal history of colonic polyps (ICD-10) Status post cataract extraction ?Z98.49 - Cataract extraction status, unspecified eye (ICD-10) Status post appendectomy ?Z90.49 - Acquired absence of other specified parts of digestive tract (ICD-10) Family History Mother Alzheimers disease Social History Narrative: Lives alone in private home. As of 02/25/2023 patient indicates she has been trying to convince her children that she needs to live in a setting where she can receive help due to her evolving physical and cognitive decline. Would like to move to the [facility], closer to 2 sons and her sister. Designates her son, Niya, as her healthcare power of supervisor power reactor should that be required. Requests DNR DNI resuscitation in the event of cardiopulmonary demise. Dr. Elmira Rodriguez is her primary care physician. What is your current living situation?: I presently have a place to live Problems where you live: no known problems Problems where you live details: no In the past 12 months, utilities in danger of being shut off: no In the past 12 mos, have been you worried that your food would run out before you had money to buy more?: never true In the past 12 mos, the food you bought just didn't last and you didn't have money to buy more?: never true Highest level of school completed/degree received: Associate degree: occupational, technical, vocational program Smoking Status: Never smoker How often do you have a drink containing alcohol: never AUDIT-C Alcohol total score: 0 Non-prescribed substance use: denies use Caffeine: Yes (rarely) How often does anyone, including family, friends and others, physically hurt you: never How often does anyone, including family, friends and others, insult or talk down to you: never How often does anyone, including family, friends and others, threaten you with harm: never How often does anyone, including family, friends and others, scream or curse at you: never service: No Meds Home Medications and Allergies Home Medications Medication Instructions Recorded Confirmed Type acetaminophen 500 mg tablet 1,000 mg PO Q6H PRN 02/25/23 07/18/23 History albuterol sulfate 90 mcg/actuation 2 inh inhalation Q4H PRN 02/25/23 07/18/23 History aerosol inhaler aspirin 81 mg tablet,delayed 81 mg PO DAILY 02/25/23 07/18/23 History release atorvastatin 10 mg tablet 10 mg PO HS 02/25/23 07/18/23 History carvedilol 6.25 mg tablet 6.25 mg PO BID 02/25/23 07/18/23 History cyclobenzaprine 5 mg tablet 5 mg PO TID PRN 02/25/23 07/18/23 History fluticasone propionate 115 2 puff inhalation BID 02/25/23 07/18/23 History mcg-salmeterol 21 mcg/actuation HFA inhaler (Advair HFA) fluticasone propionate 50 2 spray intranasal DAILY 02/25/23 07/18/23 History mcg/actuation nasal spray,suspension furosemide 40 mg tablet 40 mg PO BID 02/25/23 07/18/23 History insulin glargine 100 unit/mL (3 60 unit subcut BID 02/25/23 07/18/23 History mL) subcutaneous pen (Lantus Solostar U-100 Insulin) insulin lispro 200 unit/mL (3 mL) 30 - 50 unit subcut TIDWM 02/25/23 07/18/23 History subcutaneous pen (Humalog KwikPen U-200 Insulin) losartan 50 mg tablet 50 mg PO DAILY 02/25/23 07/18/23 History multivitamin (Daily Multi-Vitamin 1 tab PO DAILY 02/25/23 07/18/23 History tablet) naproxen sodium 220 mg tablet 220 mg PO BIDWM 02/25/23 07/18/23 History (Aleve) omeprazole 20 mg capsule,delayed 20 mg PO DAILY 02/25/23 07/18/23 History release tolterodine 4 mg capsule,extended 4 mg PO DAILY 02/25/23 07/18/23 History release 24 hr donepezil 5 mg tablet 5 mg PO HS 07/18/23 07/18/23 History metformin 850 mg tablet 850 mg PO TIDWM 07/18/23 07/18/23 History Allergies Allergy/AdvReac Type Severity Reaction Status Date / Time lisinopril Allergy Verified 07/18/23 04:14 nitrofurantoin Allergy Verified 07/18/23 04:14 [From Macrodantin] Exam Narrative: Exam Narrative: I examined patient in the emergency department in a semi recumbent position on the exam table. She appears comfortable and in no acute distress. Vision and hearing are grossly normal. Alert and oriented to self, place, but not to time and not even much to situation. Talkative and cooperative. Anxious. Does not answer questions directly. Needs to be reminded what questions were so she can try to answer them directly. (When I review this with her son, niya Thapa indicated that this type of conversation from her mother is very usual.) Obese. Neck is full. Tympanic membranes appear normal. Midline nasal septum. Moist buccal mucosa. Dentition fair repair. Mallampati class 4 airway. No icterus or conjunctival injection. Pupils equally round and reactive to light and accommodation. Extraocular muscles are intact. Neck is supple. No head neck lymphadenopathy. Lungs are clear to auscultation. No wheezing, rhonchi, or rales. No CVA tenderness. She needs help to sit up. She is not able to sit up independently. Heart tones with regular rhythm, normal S1-S2, distant, bradycardia. PMI is not laterally displaced. Abdomen with active bowel sounds, soft, nontender. No rebound or guarding. 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 Skin otherwise intact. Difficult to palpate pulses of lower extremities. Easily palpable pulses in upper extremities. Capillary refill less than 3 seconds. No focal motor neurologic deficits. Const: Vital Signs, click to edit/add: Vital Signs - 24 hr 07/18/23 04:08 07/18/23 04:13 07/18/23 04:15 Temperature 97.8 F Pulse Rate 54 L 53 L Pulse Rate [Left] 53 L Pulse Rate [Right Brachial] Respiratory Rate 24 Blood Pressure Blood Pressure [Ri ght Arm] Blood Pressure [Ri ght Upper Arm] 92/51 L Pulse Oximetry 94 94 93 Oxygen Delivery Me thod Room Air 07/18/23 04:16 07/18/23 04:17 07/18/23 04:30 Temperature Pulse Rate 53 L 54 L 58 L Pulse Rate [Left] Pulse Rate [Right Brachial] Respiratory Rate Blood Pressure 99/54 L Blood Pressure [Ri ght Arm] Blood Pressure [Ri ght Upper Arm] Pulse Oximetry 94 94 95 Oxygen Delivery Me thod 07/18/23 04:31 07/18/23 04:41 07/18/23 04:46 Temperature Pulse Rate 58 L 55 L Pulse Rate [Left] Pulse Rate [Right Brachial] Respiratory Rate Blood Pressure 121/61 98/53 L Blood Pressure [Ri ght Arm] Blood Pressure [Ri ght Upper Arm] Pulse Oximetry 96 98 95 Oxygen Delivery Me thod 07/18/23 05:01 07/18/23 06:07 07/18/23 06:34 Temperature Pulse Rate 53 L 56 L 57 L Pulse Rate [Left] Pulse Rate [Right Brachial] Respiratory Rate 18 Blood Pressure 92/53 L 91/50 L Blood Pressure [Ri ght Arm] Blood Pressure [Ri ght Upper Arm] Pulse Oximetry 96 94 94 Oxygen Delivery Me thod 07/18/23 06:38 07/18/23 06:45 07/18/23 06:47 Temperature Pulse Rate 55 L 50 L 51 L Pulse Rate [Left] Pulse Rate [Right Brachial] Respiratory Rate Blood Pressure 91/57 L Blood Pressure [Ri ght Arm] Blood Pressure [Ri ght Upper Arm] Pulse Oximetry 95 95 93 Oxygen Delivery Me thod 07/18/23 06:51 07/18/23 06:52 07/18/23 07:00 Temperature Pulse Rate 51 L 52 L 52 L Pulse Rate [Left] Pulse Rate [Right Brachial] Respiratory Rate Blood Pressure 96/46 L Blood Pressure [Ri ght Arm] Blood Pressure [Ri ght Upper Arm] Pulse Oximetry 94 94 95 Oxygen Delivery Me thod 07/18/23 07:01 07/18/23 07:13 07/18/23 07:15 Temperature 97.1 F L Pulse Rate 53 L 52 L Pulse Rate [Left] 52 L Pulse Rate [Right Brachial] Respiratory Rate 16 Blood Pressure 94/51 L Blood Pressure [Ri ght Arm] Blood Pressure [Ri ght Upper Arm] Pulse Oximetry 95 95 95 Oxygen Delivery Me thod Room Air 07/18/23 07:16 07/18/23 08:06 07/18/23 08:08 Temperature Pulse Rate 51 L 54 L 52 L Pulse Rate [Left] Pulse Rate [Right Brachial] Respiratory Rate Blood Pressure 103/58 L 88/45 L Blood Pressure [Ri ght Arm] Blood Pressure [Ri ght Upper Arm] Pulse Oximetry 95 94 95 Oxygen Delivery Me thod 07/18/23 08:09 07/18/23 08:15 07/18/23 08:16 Temperature Pulse Rate 52 L 51 L 51 L Pulse Rate [Left] Pulse Rate [Right Brachial] Respiratory Rate Blood Pressure 107/66 94/54 L Blood Pressure [Ri ght Arm] Blood Pressure [Ri ght Upper Arm] Pulse Oximetry 97 96 95 Oxygen Delivery Me thod 07/18/23 08:30 07/18/23 08:31 07/18/23 08:32 Temperature Pulse Rate 52 L 51 L 55 L Pulse Rate [Left] Pulse Rate [Right Brachial] Respiratory Rate Blood Pressure 91/57 L Blood Pressure [Ri ght Arm] Blood Pressure [Ri ght Upper Arm] Pulse Oximetry 95 94 92 Oxygen Delivery Me thod 07/18/23 08:45 07/18/23 08:46 07/18/23 08:49 Temperature Pulse Rate 56 L 57 L 53 L Pulse Rate [Left] Pulse Rate [Right Brachial] Respiratory Rate Blood Pressure 80/70 L 101/58 L Blood Pressure [Ri ght Arm] Blood Pressure [Ri ght Upper Arm] Pulse Oximetry 96 92 96 Oxygen Delivery Me thod 07/18/23 09:08 07/18/23 09:15 07/18/23 09:17 Temperature Pulse Rate 56 L 50 L 52 L Pulse Rate [Left] Pulse Rate [Right Brachial] Respiratory Rate Blood Pressure 117/77 Blood Pressure [Ri ght Arm] Blood Pressure [Ri ght Upper Arm] Pulse Oximetry 95 97 98 Oxygen Delivery Me thod 07/18/23 09:18 07/18/23 09:30 07/18/23 09:31 Temperature Pulse Rate 51 L 52 L 53 L Pulse Rate [Left] Pulse Rate [Right Brachial] Respiratory Rate Blood Pressure 124/68 Blood Pressure [Ri ght Arm] Blood Pressure [Ri ght Upper Arm] Pulse Oximetry 97 97 97 Oxygen Delivery [facility] 07/18/23 10:22 Temperature 96.5 F L Pulse Rate Pulse Rate [Left] Pulse Rate [Right Brachial] 52 L Respiratory Rate 20 Blood Pressure Blood Pressure [Ri ght Arm] 137/74 Blood Pressure [Ri ght Upper Arm] Pulse Oximetry 96 Oxygen Delivery [facility] Room Air Hospitalist - H&P: Result Labs Labs: Short CBC 07/18/23 Range/Units 05:08 WBC 5.22 (4.50-11.00) K/uL Hgb 11.8 L (12.0-16.0) gm/dL Hct 37.6 (33.0-51.0) % Plt Count 147 (140-440) K/uL BMP 07/18/23 05:08 Sodium 143 Potassium 3.2 L Chloride 105 Carbon Dioxide 27 BUN 33 H Creatinine 0.8 Glucose 72 Calcium 9.4 Cardiac Enzymes 07/18/23 Range/Units 05:08 Troponin I 0.01 (0.01-0.04) ng/mL Liver Function 07/18/23 Range/Units 05:08 Total Bilirubin 0.7 (0.1-1.5) mg/dL Direct Bilirubin 0.1 (0.0-0.5) mg/dL AST 60 H (12-35) U/L ALT 35 (4-35) U/L Alkaline Phosphatase 78 (40-150) U/L Albumin 3.8 (3.3-5.0) g/dL Urine 07/18/23 Range/Units 05:35 Urine Color Yellow (Yellow) Urine Appearance Slightly Cloudy A (Clear) Urine pH 6.0 (5.0-8.5) Ur Specific [place] 1.010 (1.000-1.030) Urine Protein Negative (Negative) Urine Glucose (UA) Negative (Negative) ECG Attestation: I personally reviewed and interpreted this ECG as follows: ECG interpretation date: 07/18/23 ECG interpretation time: 10:00 Prior ECG tracings: not available for review Interpretation: Sinus bradycardia, rate 52 beats per minute. No acute ischemic changes. Imaging Chest x-ray: Attestation: I have reviewed the pertinent imaging results. Radiologist's impression: IMPRESSION: Cardiovascular and mediastinum: Similar mild prominence of the cardiomediastinal silhouette. Lungs and pleural spaces: Hyperinflation and chronic interstitial changes similar to prior. No sign of infiltrate. No sign of pleural effusion. No pneumothorax. Bones and soft tissues: No significant findings. Assessment and Plan Assessment and plan (1) Weakness: Status: Acute (2) Polypharmacy: Status: Acute (3) Diarrhea: Status: Acute (4) Hypoglycemia associated with type 2 diabetes mellitus: Status: Acute (5) Bradycardia, drug induced: Status: Acute (6) STEPHANIE on CPAP: Status: Acute (7) Mild cognitive impairment: Problem comment: [place] 27/30. More concerning is her executive function as it regards IADLs Status: Acute (8) Chronic venous stasis dermatitis of both lower extremities: Status: Acute (9) Morbid obesity: Problem comment: BMI 45 Status: Acute (10) Physical deconditioning: Problem comment: -weight loss, improved diet needed and regular low impact exercise is singleton Status: Acute (11) Unstable gait: Status: Acute (12) Frequent falls: Status: Acute Plan 1. Reviewed impression with patient. 2. Reviewed impression with her son, Niya. 3. Patient not capable of caring for herself independently any longer. 4. Adjust medications including decreasing insulin, decreasing beta-deja, decreasing other antihypertensive medications. For now will stop her scheduled short-acting insulin with meals and change to sliding scale. Will decrease her long-acting insulin dose in half. Will hold her beta-deja for now and consider restarting it at a lower dose beginning to moral. Will hold her angiotensin receptor deja agent, losartan, for now. Consider restarting it at a lower dose over time. 5. Physical therapy and occupational therapy consultation for assessment for possible senior living facility admission. 6. Geospatial Analyst to assist with discharge disposition planning as well. 7. Continue with home CPAP as presently on. 8. Answered her son's questions to his satisfaction. He will be in communication with his brothers. Niya is in total agreement that his mother is not capable of caring for herself any longer.
[2023-07-18 14:16] LABS: C.Difficile Negative (Negative); CDIFFEPI 027 PRESUMPTIVE NEGATIVE (Negative)
--- NOTE | 2023-07-18 14:34 | PC.NURSE ---
End of Shift: Patient was admitted from the ER today around 10:30. Patient was at home and not feeling well. Upon arrival took patient's blood sugar was only 57 and she was struggling to find her words. Update hospitalist and we then ordered her something to eat. About 1 hour after initial blood sugar rechecked and blood sugar was 109. she had x4 loose stools since her arrival to the floor and asked patient if this is usual for her. She said since she had her colonoscopy. Updated Dr. Houser and received order to send a stool sample to check for c-diff. See diagnotics for results.
[2023-07-18] MEDS: CYCLOBENZAPRINE HCL 10 MG TABLET 5 MG PO (15:52)
[2023-07-18] MEDS: POTASSIUM BICARB 25 MEQ EFFERVESCENT TAB PO ×2 (15:52→18:00)
[2023-07-18] MEDS: 0.9 % SODIUM CHLORIDE 500 ML 500 ML IV (15:53)
[2023-07-18] MEDS: 0.9 % SODIUM CHLORIDE 1000 ml 1,000 ML 75 ML IV (15:53)
--- NOTE | 2023-07-18 16:01 | PC.SOCIAL ---
Discharge planning: Received calls from two sons, Amol ([phone]) and Elier ([phone]) stating that family has been encouraging pt to move into assisted living as she is currently living alone in her own home and is falling frequently. Family does not live close enough to check on her and does not feel she is safe at home. Family took her to visit [facility] in [place] and she is on the waiting list for this assisted living facility. family hopes pt will be placed for short term rehab and that following a rehab stay, she could move into assisted living. Family shared that pt is her own decision maker but that family is considering pursuing guardianship if pt does not agree to be placed in a facility with care. Met with pt who confirmed that she is on waiting list for assisted living facility. Introduced healthcare social worker as available to assist with discharge plans when her discharge needs are determined. weigh and charge worker to follow up as needed.
[2023-07-18] MEDS: NAPROXEN 250 MG TABLET PO (17:46)
--- NOTE | 2023-07-18 20:00 | PC.NURSE ---
Nurse Care Hours: [id number] Pt this shift calm and cooperative with cares. Alert and oriented with delayed word finding. Stable on room air. SB/assist x1 with walker and gait belt. IV patent. Bilat knees covered with mepliex d/t blisters starting to break open, clear fluid draining. Insulin given per eMAR. Flexeril given PRN. Eating, drinking, and voiding sufficiently.
[2023-07-18] MEDS: DONEPEZIL 5 MG TABLET PO (21:08)
[2023-07-18] MEDS: ATORVASTATIN 10 MG TABLET PO (21:08)
[2023-07-19 00:15] VITALS: PULSE 60
[2023-07-19 03:00] VITALS: BP 158/75; PULSE 63; RESP 16; TEMP 36.9; O2SAT 94
[2023-07-19 07:00] VITALS: BP 138/69; PULSE 63; RESP 16; TEMP 36.8; O2SAT 93
--- NOTE | 2023-07-19 07:33 | PC.NURSE ---
[id number] Pt sleeping until approx 0630, came up to nurse's desk, confused and unreceptive to reorientation. Pt removed telemetry and did not allow nurse to reapply, untrusting of staff but remained pleasant.
[2023-07-19] MEDS: ASPIRIN 81 MG TABLET EC PO (09:26)
[2023-07-19] MEDS: NAPROXEN 250 MG TABLET PO (09:27)
[2023-07-19] MEDS: FLUTICASONE PROPIONATE NASAL 2 SPRAY NOSTRIL-B (11:26)
[2023-07-19] MEDS: TOLTERODINE TARTRATE 2 MG CAP.ER.24H 4 MG PO (11:27)
[2023-07-19 15:40] VITALS: RESP 16; O2SAT 94
--- NOTE | 2023-07-19 15:45 | PC.NURSE ---
Nursing Care Hours: [id number] Pt this shift alert. confused about place beginning of shift, seen wandering the halls with aid. After walk, pt was cooperative with cares. During orientation assessment, pt states I was promised a nap and I don't appreciate you interrupting that. U/o appears to have a dark chi/orange color in toilet bowl with strong odor. VSS, afebrile. Bilat pitting edema
--- NOTE | 2023-07-19 17:01 | P.IMPN_ITS ---
Progress Note: A&P Assessment and plan (1) Weakness: Status: Acute (2) Polypharmacy: Status: Acute (3) Diarrhea: Status: Acute (4) Hypoglycemia associated with type 2 diabetes mellitus: Status: Acute (5) Bradycardia, drug induced: Status: Acute (6) STEPHANIE on CPAP: Status: Acute (7) Mild cognitive impairment: Problem details: [place] 27/30. More concerning is her executive function as it regards IADLs Status: Acute (8) Chronic venous stasis dermatitis of both lower extremities: Status: Acute (9) Morbid obesity: Problem details: BMI 45 Status: Acute (10) Physical deconditioning: Problem details: -weight loss, improved diet needed and regular low impact exercise is singleton Status: Acute (11) Unstable gait: Status: Acute (12) Frequent falls: Status: Acute (13) Delirium: Status: Acute Plan 1. I am sure the patient we are not keeping her against her will. I indicated to her how we are in discussion with her sons about her current stay. I agree with her that we are concerned about her ability to return to her home safely. And around about manner she indicates that her sons are similarly concerned. Reportedly she and her sons have been looking for an assisted living facility for the last several months. 2. Continue with supportive efforts at this time. 3. Called and discussed the patient's condition with her son Elier, her primary power of carton counter feeder for health. Elier is in the middle of some health matters that he is dealing with. He asked that I speak with his brother, Amol. His brother Amol calls me and I update Amol as well. Elier and Amol agree that their mother is incapable of living independently any longer. They clearly indicate that they have had this concern for several months in regard to her mother. They have been arduously striving to find an assisted living facility that her mother would agree to. They would like our social work specialist to help them establish a safe disposition plan. I informed him that we work together as a team, with nursing, director of social media marketing, Physical therapy, Occupational therapy. He is agreeable. Will need to continue to work with the family. 4. Will hold off on adding any medication in regard to the patient's delirium at this time. Continue with efforts to manage this in a non medicinal fashion. 5. Will recheck labs in the morning. 6. If patient condition continues to be such that it is unsafe for her to return home as she was living previously, will need to consider changing her status to full admission due to unsafe discharge disposition plan. Time Spent With Patient Total time spent: 45 minutes Subjective Time Seen by Provider: 08:00 Date Seen: 07/19/23 Interval history: Hospital day 2. I assess the patient often on throughout the day starting around 7:00 a.m. this morning. Patient complains of us keeping her here in the hospital against her will. Initially she is not able to tell me why she is here how she arrived. For awhile she thinks she might have arrived here via ambulance. As the day evolves she seems to have better recollection of herself calling for help and EMS transporting her to the hospital. She tells me she wants to go home. Denies any discomforts. Able to walk about from her room to the nurse's station and back. Eating and drinking independently. Exam Narrative: Exam Narrative: I examine her in her room, in the hallway, and by the nurses station where she stands. Appears comfortable, in no acute distress. Anxious and agitated. Paranoid thinking that we brought her to the hospital and are keeping her in the hospital against her will. Somewhat able to be redirected. At times able to engage in focus dialogue. Other times her thoughts are more scattered and more difficult for her to stay focused. Lungs are clear to auscultation. Heart tones with regular rhythm. Abdomen with active bowel sounds. Soft. Extremities with chronic edema with chronic stasis dermatitis. Moves all 4 extremities. No focal motor neurologic deficits. Independent in transfer, station, and gait. Const: Vital Signs, click to edit/add: Vital Signs - 24 hr 07/18/23 19:10 07/18/23 23:00 07/19/23 00:15 Temperature 98.4 F 98.4 F Pulse Rate 60 Pulse Rate [Left P ulse Oximeter] Pulse Rate [Right Brachial] 61 78 Respiratory Rate 16 16 Blood Pressure [Ri ght Arm] 142/65 H 116/62 Pulse Oximetry 96 94 Oxygen Delivery Me thod Room Air Room Air 07/19/23 01:56 07/19/23 03:00 07/19/23 07:00 Temperature 98.4 F Pulse Rate Pulse Rate [Left P ulse Oximeter] Pulse Rate [Right Brachial] 63 63 Respiratory Rate 16 16 Blood Pressure [Ri ght Arm] 158/75 H Pulse Oximetry 94 Oxygen Delivery Me thod Room Air Room Air 07/19/23 07:00 07/19/23 07:00 07/19/23 15:40 Temperature 98.3 F Pulse Rate Pulse Rate [Left P ulse Oximeter] 63 Pulse Rate [Right Brachial] Respiratory Rate 16 16 16 Blood Pressure [Ri ght Arm] 138/69 Pulse Oximetry 93 93 94 Oxygen Delivery Me thod Room Air Room Air 07/19/23 15:40 Temperature Pulse Rate Pulse Rate [Left P ulse Oximeter] Pulse Rate [Right Brachial] Respiratory Rate Blood Pressure [Ri ght Arm] Pulse Oximetry 94 Oxygen Delivery Me thod Room Air Documenting provider has reviewed patient's vital signs: yes
--- NOTE | 2023-07-19 17:10 | PC.SOCIAL ---
Discharge planning: Family is requesting transitional care placement at discharge as they don't feel she is safe to return home. Pt does not meet medical criteria for needing a short term rehab stay, so would not qualify for a intermediate stay. Explored memory care facility placement. However, pt does not have a dementia diagnosis and scored 27/30 on the [facility] OT testing today which does not typically support the need for memory care placement. Spoke with son Amol, who states his brother Elier is pt's Healthcare Power of Dean Of Admissions and that they want her placed in a facility that can provide 24/7 care because she has been falling and doesn't always choose to answer her phone when they call to check on her. Per son, they live a distance and can't physically check on her when she doesn't answer the phone. Son states they have looked at assisted living apartment at [facility] in [place] and that she is on a waiting list for an apartment there. Son does not know when an apartment will open up. With son's permission, called [facility] to ask about respite stay apartment availability which is advertised on their website. Spoke with Magda Roberson, at [facility], , who states they do not have any respite apartments, but they do have the two bedroom apartment that the family and pt were interested in. Magda provided her phone number to give to family as the apartment could e ready as early as August 05. Called son, Amol, and left message sharing information obtained from Magda and temitope rae for family to reach her about this apartment. aircraft layout worker to follow up as needed.
[2023-07-19 17:43] VITALS: BP 144/77; RESP 20; TEMP 36.7
[2023-07-19] MEDS: ATORVASTATIN 10 MG TABLET PO (21:41)
--- NOTE | 2023-07-19 23:21 | PC.NURSE ---
Shift [id number]- Upon initial encounter, it is clear patient is suspicious and paranoid this afternoon. Due to this mentality, she refuses most interventions, assessments. For instance, upon asking her where she is, she responds, why do you want to know? then supposedly a hospital. She is non-redirectable. She refuses supper and blood sugar check at that time- no insulin administered, therefore. Tonight, she is more agreeable to taking medications, blood sugar check, and insulin. She wanders in the donohue this afternoon with STEPH in attendance.
[2023-07-20] MEDS: OMEPRAZOLE 20 MG CAPSULE DR PO (06:22)
--- NOTE | 2023-07-20 06:57 | PC.NURSE ---
Pt pleasant this shift. Did follow redirection when needed. Slept most of the shift. Did stay in room when up. Took meds this am and allowed lab to draw blood. VSS
[2023-07-20 07:00] VITALS: BP 145/101; PULSE 58; PULSE 63; RESP 20; TEMP 36.8; O2SAT 94
[2023-07-20 07:18] LABS: HCO3 VBG 27 mmol/L (21-28); Lactate* 1.8 mmol/L (0.5-1.9); PCO2 VBG 45 mmHG (40-50); PO2 VBG 43.4 mmHG (25-47); pH VBG 7.389 (7.32-7.43)
[2023-07-20 07:20] LABS: Basophils Absolute Auto 0.02 K/uL (0.00-0.30); Basophils Percent Auto 0.4 % (0.0-3.0); Eosinophils Absolute Auto 0.27 K/uL (0.00-0.50); Eosinophils Percent Auto 5.5 % (0.0-7.0); Hematocrit 36.7 % (33.0-51.0); Hemoglobin* 11.4 gm/dL (12.0-16.0); Immature Granulocytes Abs Auto 0.01 K/uL (0.00-0.30); Immature Granulocytes Pct Auto 0.2 %; Lymphocytes Absolute Auto 1.45 K/uL (0.90-2.90); Lymphocytes Percent Auto 29.7 % (20-44); Mean Corpuscular HGB Conc 31 gm/dL (32-36); Mean Corpuscular Hemoglobin 28 pg (26-34); Mean Corpuscular Volume 91 fL (80-100); Monocytes Percent Auto 10.9 % (0.0-11.0); Neutrophils Percent Auto 53.3 % (42.0-72.0); Platelet Count* 132 K/uL (140-440); RDW Coefficient of Variation % 14.4 % (11.5-15.5); Red Blood Count 4.03 m/uL (4.00-5.20); White Blood Count* 4.88 K/uL (4.50-11.00)
[2023-07-20 07:25] LABS: Slide Review Reflex No
[2023-07-20 07:45] LABS: Albumin* 3.6 g/dL (3.3-5.0); Chloride* 107 mmol/L (96-114); Potassium* 4.2 mmol/L (3.6-5.1); Sodium* 139 mmol/L (135-149)
[2023-07-20 07:48] LABS: Alanine Aminotransferase* 35 U/L (4-35); Alkaline Phosphatase* 78 U/L (40-150); Aspartate Amino Transferase* 47 U/L (12-35); Bilirubin Total* 0.6 mg/dL (0.1-1.5); Blood Urea Nitrogen* 25 mg/dL (7-30); Carbon Dioxide* 27 mmol/L (20-32); Creatinine* 0.5 mg/dL (0.5-1.5); Est. Creatinine Clearance* 40.38; Estimated Glomerular Filt Rate 95 ml/min; Glucose* 214 mg/dL (60-115)
[2023-07-20 07:49] LABS: Magnesium* 1.6 mg/dL (1.5-2.6); Phosphorus* 3.6 mg/dL (2.5-4.5)
[2023-07-20 07:51] LABS: C Reactive Protein* 0.7 mg/dL (0.5-1.0)
[2023-07-20 08:04] LABS: Procalcitonin* 0.04 ng/mL (<0.50)
[2023-07-20 08:06] LABS: NT Pro B Type NatriureticPept* 419 pg/mL
[2023-07-20] MEDS: NAPROXEN 250 MG TABLET PO ×2 (09:18→17:11)
[2023-07-20] MEDS: FLUTICASONE PROPIONATE NASAL 2 SPRAY NOSTRIL-B (09:18)
[2023-07-20] MEDS: TOLTERODINE TARTRATE 2 MG CAP.ER.24H 4 MG PO (09:18)
[2023-07-20] MEDS: ASPIRIN 81 MG TABLET EC PO (09:18)
[2023-07-20 11:00] VITALS: RESP 20
--- NOTE | 2023-07-20 13:19 | P.DS_ITS ---
DS: Providers Provider Time Seen by Provider: 08:00 Date Seen: 07/20/23 Date of admission: 07/20/23 09:40 Primary care physician: Elmira Rodriguez MD Admitting Clinician: Nash Avila MD Consults: 07/18/23 10:20 Consult to Physical Therapy [CONS] Routine Comment: Reason(s) for PT Consult:: Evaluate and Treat Any Restrictions?:: No Restrictions Consult to Hot Air Furnace Installer And Repairer [CONS] Routine Comment: Reason for Consult:: Discharge Planning Needs 07/18/23 10:24 Consult to Occupational Therapy [CONS] Routine Comment: Reason(s) for OT Consult:: Evaluate and Treat Any Restrictions?:: No Restrictions Comment: poor judgement; cognitive impairment; ADLs? 07/18/23 11:47 Consult to Occupational Therapy [CONS] Routine Comment: Reason(s) for OT Consult:: Difficulty Managing ADLs Any Restrictions?:: No Restrictions Consult to Physical Therapy [CONS] Routine Comment: Reason(s) for PT Consult:: Evaluate Ambulation Any Restrictions?:: No Restrictions Attending Physician on discharge: Amelia Cruz MD Date of Discharge: 07/20/23 DS: Diagnosis Discharge Diagnosis (1) Dehydration: Status: Resolved (2) Delirium: Status: Resolved (3) UTI (urinary tract infection): Status: Acute Problem details: - Started 3 days of vantin 07/20/23 Specimen: [id number] COMP Collected: 07/18/23-UNK Received: 07/18/23-0552 Source: Urine CC Sp Descrip: Sub Dr: Nash Avila M.D. Other Dr: Procedure Result Site Urine Culture* Final ML Organism 1 Klebsiella pneumoniae Ur [place] Count >100,000 CFU/ml SN GNI/GNS Kleb pneum DARIELA RX --------- --- Ampicillin >=32 R Ampicillin/Sulbactam 8 S Cefazolin <=4 S Cefepime <=1 S Extended Spectrum Beta Lactama NEG Cefoxitin <=4 S Ceftazidime <=1 S Ceftriaxone <=1 S Ciprofloxacin <=0.25 S Ertapenem <=0.5 S Gentamicin <=1 S Imipenem <=0.25 S Levofloxacin <=0.12 S Nitrofurantoin 64 I Tobramycin <=1 S Trimethoprim/Sulfamethoxazole <=20 S Piperacillin/Tazobactam <=4 S (4) Frequent falls: Status: Acute (5) Unstable gait: Status: Acute (6) Chronic venous stasis dermatitis of both lower extremities: Status: Chronic (7) Bradycardia, drug induced: Status: Acute (8) Hypoglycemia associated with type 2 diabetes mellitus: Status: Acute (9) Diabetes mellitus type 2 in obese: Status: Acute Problem details: A1C 9.9 (10) Polypharmacy: Status: Acute (11) Mild cognitive impairment: Status: Suspected Problem details: [place] 27/30. More concerning is her executive function as it regards IADLs (12) Morbid obesity: Status: Acute Problem details: BMI 45 (13) STEPHANIE on CPAP: Status: Acute (14) Weakness: Status: Resolved (15) Diarrhea: Status: Resolved (16) Cervical spinal stenosis: Status: Chronic DS: Summary Hospital Course Hospital Course: This is an 82-year-old female who lives independently and had called EMS thinking something was wrong and she might not be able to call for help. She had gone to bed the night before not feeling well and awoke in the middle of the night with an urge to urinate. Other than that she could not figure out what was wrong. She was unable to give a reliable history upon presentation. History had also been gathered from the patient's sons and they were concerned about her living at home alone. The believed her cognition has been declining. He notes that she has had multiple falls, but she has not had any major injuries from those falls. She had some paranoid thoughts yesterday, but these have completely resolved and she is back to her baseline today. She desires to return home. She is presently her own decision maker. Her sons have been looking for an assisted living facility for her the last several months and our manager social work helped them establish a plan with the facility of their choice having a bed available as soon as 08/05/2023. She is doing much better and medically stable today. She does have Klebsiella on her urine culture for which I am treating her with cefpodoxime. I spoke with her son, Elier, today about discharging her home. He was concerned that although she was well at this time, she has other times where she is not well and should not be on her own. I discussed this case with our clearing house clerk who was in contact with our manager social work from yesterday, and the patient's nurse, and our occupational therapist to saw this patient today. She was ambulating in the hallways independently without any difficulty and demonstrated good mental facilities today. Her [place] done yesterday was . She is not appropriate for care home facility or memory care at this time and therefore she is ready for discharge home today. I attempted to address her son's concerns about her being home alone and suggested that he and his brothers have her move in with them, try to move in with her, check in on her frequently, or hire someone to be with her or check in on her frequently. He said they have considered all of these suggestions, but since she is her own decision maker she has refused to comply with any of these. He said that if I discharged her he would seek guardianship. Again I reviewed her chart and spoke with our medical staff and I feel that she is medically stable for discharge and is improved from yesterday enough to discharge home. She is her own decision maker and desires to do so. I have adjusted her medications for hypoglycemia and bradycardia that were present on admission. Would like her to follow-up with her primary care provider later this week to follow-up on blood pressure, heart rate, and hypoglycemia. Time Spent with Patient Time attestation: Total time spent providing and/or coordinating discharge services: Exam Narrative: Exam Narrative: General: No acute distress. Awake, alert, oriented x3. No agitation, anxiety, or paranoid thinking. She remained appropriate and engaged in informative dialogue. No pallor. No jaundice. Oropharynx: Clear. Mucous membranes moist. Cardiovascular: Mild bradycardia, regular rhythm. No murmurs, gallops, or rubs. Respiratory: Clear to auscultation bilaterally. No wheezes or crackles. Abdomen: Bowel sounds present. Soft, nondistended, nontender. Const: Vital Signs, click to edit/add: Vital Signs - 24 hr 07/19/23 15:40 07/19/23 15:40 07/19/23 17:43 Temperature 98.1 F Pulse Rate [Left P ulse Oximeter] Pulse Rate [Right Brachial] Respiratory Rate 16 20 Blood Pressure [Ri ght Arm] 144/77 H Pulse Oximetry 94 94 Oxygen Delivery Me thod Room Air 07/19/23 23:00 07/20/23 07:00 07/20/23 07:00 Temperature Pulse Rate [Left P ulse Oximeter] 63 Pulse Rate [Right Brachial] 63 Respiratory Rate 20 20 Blood Pressure [Ri ght Arm] Pulse Oximetry 94 Oxygen Delivery Me thod Room Air Room Air 07/20/23 07:00 Temperature 98.2 F Pulse Rate [Left P ulse Oximeter] 58 L Pulse Rate [Right Brachial] Respiratory Rate 20 Blood Pressure [Ri ght Arm] 145/101 H Pulse Oximetry 94 Oxygen Delivery Me thod Room Air DS: Data Data Completed and Pending Completed studies during hospitalization: Specimen: [id number] COMP Collected: 07/18/23-UNK Received: 07/18/2352 Source: Urine CC Sp Descrip: Sub Dr: Nash Avila M.D. Other Dr: Procedure Result Site Urine Culture* Final ML Organism 1 Klebsiella pneumoniae Ur [place] Count >100,000 CFU/ml SN GNI/GNS Kleb pneum DARIELA RX --------- --- Ampicillin >=32 R Ampicillin/Sulbactam 8 S Cefazolin <=4 S Cefepime <=1 S Extended Spectrum Beta Lactama NEG Cefoxitin <=4 S Ceftazidime <=1 S Ceftriaxone <=1 S Ciprofloxacin <=0.25 S Ertapenem <=0.5 S Gentamicin <=1 S Imipenem <=0.25 S Levofloxacin <=0.12 S Nitrofurantoin 64 I Tobramycin <=1 S Trimethoprim/Sulfamethoxazole <=20 S Piperacillin/Tazobactam <=4 S Blood cultures x2 from 07/18/2023, no growth. 07/18/2023 EKG: sinus bradycardia, 52 beats per minute. 07/19/2023 EKG: Sinus bradycardia, 57 beats per minute. Otherwise normal EKG. Ordering Physician: Nash Avila M.D. Date of Service: 07/18/23 Procedure(s): XR chest 1V portable Accession Number(s): [id number] cc: Nash Avila M.D.; Elmira Rodriguez M.D.~ For Patients: As a result of the Cures Act, medical imaging exams and procedure reports are released immediately into your electronic medical record. You may view this report before your referring provider. If you have questions, please contact your health care provider. INDICATION: shaking, chills TECHNIQUE: Chest 1 views. COMPARISON: November 21, 2021 IMPRESSION: Cardiovascular and mediastinum: Similar mild prominence of the cardiomediastinal silhouette. Lungs and pleural spaces: Hyperinflation and chronic interstitial changes similar to prior. No sign of infiltrate. No sign of pleural effusion. No pneumothorax. Bones and soft tissues: No significant findings. Dictated by Kieran Bassett MD @ 07/18/2023 7:53:33 AM (Electronically Signed) Labs on day of discharge: Labs from last 24 hours 07/20/23 07:00 WBC 4.88 RBC 4.03 Hgb 11.4 L Hct 36.7 MCV 91 MCH 28 MCHC 31 L RDW Coeff of Blanche 14.4 Plt Count 132 L Neut % (Auto) 53.3 Lymph % (Auto) 29.7 [place] % (Auto) 10.9 Eos % (Auto) 5.5 Baso % (Auto) 0.4 Neut # (Auto) 2.60 Lymph # (Auto) 1.45 [place] # (Auto) 0.50 Eos # (Auto) 0.27 Baso # (Auto) 0.02 Abs Immat Gran (auto) 0.01 Imm/Tot Granulo (auto) 0.2 VBG pH 7.389 VBG pCO2 45 VBG pO2 43.4 VBG HCO3 27 Sodium 139 Potassium 4.2 Chloride 107 Carbon Dioxide 27 BUN 25 Creatinine 0.5 Estimated Creat Clear 40.38 Estimated GFR 95 Glucose 214 H Lactate 1.8 Phosphorus 3.6 Magnesium 1.6 Total Bilirubin 0.6 AST 47 H ALT 35 Alkaline Phosphatase 78 C-Reactive Protein 0.7 NT-Pro-B Natriuret Pep 419 Total Protein 6.0 Albumin 3.6 Procalcitonin 0.04 TSH 2.010 Preliminary micro results at discharge 07/18/23 05:08 Blood Culture - Preliminary Blood NO GROWTH AFTER 48 HOURS 07/18/23 05:05 Blood Culture - Preliminary Blood NO GROWTH AFTER 48 HOURS Discharge Plan Discharge Disposition: Home, Self-Care Date of Admission: 07/20/23 09:40 Attending Provider on Discharge: Amelia Cruz Primary Care Provider: Elmira Rodriguez Condition: Stable Anticipated Discharge Date/Time: 07/20/23 14:55 Discharge Medications: New cefpodoxime 100 mg tablet 100 mg PO BID Qty: 10 0RF Rx Instructions: must administer with a meal/food cephalexin 500 mg capsule 500 mg PO BID Qty: 10 0RF Continued losartan 50 mg tablet 50 mg PO DAILY atorvastatin 10 mg tablet 10 mg PO HS tolterodine 4 mg capsule,extended release 24hr 4 mg PO DAILY fluticasone propionate 50 mcg/actuation spray,suspension 2 spray INTRANASAL DAILY cyclobenzaprine 5 mg tablet 5 mg PO TID PRN fluticasone propion-salmeterol [Advair HFA] 115-21 mcg/actuation HFA aerosol inhaler 2 puff inhalation BID Humalog KwikPen Insulin 200 unit/mL (3 mL) insulin pen 30 - 50 unit subcut TIDWM aspirin 81 mg tablet,delayed release (DR/EC) 81 mg PO DAILY albuterol sulfate 90 mcg/actuation HFA aerosol inhaler 2 inh inhalation Q4H PRN acetaminophen 500 mg tablet 1,000 mg PO Q6H PRN naproxen sodium [Aleve] 220 mg tablet 220 mg PO BIDWM multivitamin [Daily Multi-Vitamin] Tablet 1 tab PO DAILY donepezil 5 mg tablet 5 mg PO HS metformin 850 mg tablet 850 mg PO TIDWM furosemide 40 mg tablet 40 mg PO DAILY Qty: 30 0RF insulin glargine [Lantus Solostar U-100 Insulin] 100 unit/mL (3 mL) insulin pen 40 unit subcut BID Qty: 1 0RF Held omeprazole 20 mg capsule,delayed release(DR/EC) 20 mg PO DAILY Hold Instructions: Resume on 07/25/23. Discontinued carvedilol 6.25 mg tablet 6.25 mg PO BID Discharge Orders: Discharge Order (Routine); Ordered 07/20/23 Ordered By: Amelia Cruz Patient Education: Urinary Tract Infection in Women (DC) Activity Level: Activity as Tolerated and Use Walker Discharge Diet: Diabetic Follow Up Appointments: Elmira Rodriguez MD [Primary Care Provider] - (Saturday) Forms: [facility] Info Instructions
--- NOTE | 2023-07-20 18:00 | PC.NURSE ---
Patient's discharge instructions discussed with the patient and her son. All questions were answered and forms were signed. Pt belongings form signed and all belonging sent. Pt escorted to front entrance via wheelchair and nursing staff.
[2023-07-25 18:10] LABS: Calcium* 8.8 mg/dL (8.4-10.6)
== END 2023-07-20 17:50 | disposition home or self-care (01) | DRG 641 ==
LOC: ED 08:48 → MEDSURG 10:07
PROVIDERS: Admitting Provider Family Medicine; Emergency Provider Family Medicine; PCP Family Medicine; Visit Provider Internal Medicine
DX: E86.0 Dehydration (principal); N39.0 Urinary tract infection, site not specified; Z68.42 Body mass index [BMI] 45.0-49.9, adult; R53.1 Weakness; R00.1 Bradycardia, unspecified; T44.7X5A Adverse effect of beta-adrenoreceptor antagonists, initial encounter; E11.649 Type 2 diabetes mellitus with hypoglycemia without coma; Z79.4 Long term (current) use of insulin; Z91.81 History of falling; B96.1 Klebsiella pneumoniae [K. pneumoniae] as the cause of diseases classified elsewhere; G31.84 Mild cognitive impairment of uncertain or unknown etiology; I89.0 Lymphedema, not elsewhere classified; G47.33 Obstructive sleep apnea (adult) (pediatric); J44.9 Chronic obstructive pulmonary disease, unspecified; E66.01 Morbid (severe) obesity due to excess calories; Z99.89 Dependence on other enabling machines and devices; R19.7 Diarrhea, unspecified; I87.2 Venous insufficiency (chronic) (peripheral); R26.89 Other abnormalities of gait and mobility; I10 Essential (primary) hypertension; E11.42 Type 2 diabetes mellitus with diabetic polyneuropathy; M48.02 Spinal stenosis, cervical region
CPT/HCPCS: 36415; 71045; 80048; 80053; 80076; 81001; 82803; 82947; 82962; 83605; 83735; 83880; 84100; 84145; 84443; 84484; 85025; 85027; 86140; 87040; 87086; 87186; 87493; 87631; 93005; 94761; 97116; 97161; 97165; 97530; 97535; 99284; 99285; G0378; A9270; J7030; J7120